=== PATIENT | female | born 1950 | race Hispanic/Latino ===

== ENCOUNTER 2017-09-26 10:06 | Observation (INO) | payer MEDICARE ==
[~2017-09-26] VITALS: Ht 149.9 cm; Wt 64.9 kg
[~2017-09-26 10:06] MED LIST: AEC81 PO; AMLO1TAB15 PO; ATENOLOL PO; CLON0.1T PO; CLOP75TA32 PO; DOCUSATE PO; EZET10 PO; FENT50PAT TD; IBUP-2353 PO; LINA1TAB5 PO; NILO200C PO; OXYC10TA48 PO; POTA10CA44 PO; SENNA PO; VANC1IVPB IV
[2017-09-26 11:33] LABS: APPEARANCE,URINE Clear (CLEAR); BILIRUBIN,URINE Negative (NEGATIVE); COLOR,URINE Yellow (YELLOW); EOSINOPHILS % (AUTO) 1.4 % (0.0-8.0); GLUCOSE, URINE (UA) Negative (NEGATIVE); HEMATOCRIT 34.4 % (36-48); KETONES,URINE Negative (NEGATIVE); LEUKOCYTE ESTERASE ,URINE Negative (NEGATIVE); LYMPHOCYTES % (AUTO) 23.4 % (21.0-51.0); MEAN CORPUSCULAR HEMOGLOBIN 30.4 pg (27.0-33.0); MEAN CORPUSCULAR HGB CONC 33.7 g/dL (32.0-36.0); MEAN CORPUSCULAR VOLUME 90.3 fL (79-99); MONOCYTES % (AUTO) 4.7 % (3.0-13.0); NEUTROPHILS % (AUTO) 69.5 % (40.0-77.0); NITRATE,URINE Negative (NEGATIVE); OCCULT BLOOD,URINE Negative (NEGATIVE); PH,URINE 7.5 (5.0-8.0); PLATELET COUNT (AUTO) 291 K/uL (130-400); PROTEIN,URINE Negative (NEGATIVE); RED BLOOD CELL COUNT(AUTO) 3.81 MIL/uL (4.00-5.50); RED CELL DISTRIBUTION WIDTH 14.1 % (11.0-15.5); UROBILINOGEN,URINE 0.2 mg/dL (0.2-1.0); WHITE BLOOD COUNT (AUTO) 7.7 K/uL (4.8-10.8)
[2017-09-26 11:42] LABS: CREATININE 0.8 mg/dL (0.5-1.5); POTASSIUM 3.5 mmol/L (3.5-5.1)
[2017-09-26] MEDS ORDERED: HYDRALAZINE HCL 25 MG TABLET ONE (11:43)
[2017-09-26 11:47] LABS: ALBUMIN 3.6 g/dL (3.5-5.0); BILIRUBIN,TOTAL 0.3 mg/dL (0.2-1.0); TOTAL PROTEIN, SERUM 7.4 g/dL (6.0-8.3)
[2017-09-26] MEDS ORDERED: ONDANSETRON HCL 4 MG/2 ML VIAL IV PRN (13:15)
[2017-09-26] MEDS ORDERED: HYDRALAZINE HCL 20 MG/ML VIAL IV PRN (13:15)
[2017-09-26] MEDS ORDERED: METOPROLOL TARTRATE 1 MG/ML 5ML VIAL IV ONE (13:15)
[2017-09-26] MEDS ORDERED: ACETAMINOPHEN-CODEINE 300/30MG TAB PO PRN (13:15)
[2017-09-26] MEDS ORDERED: GUAIFENESIN-DM 200/20 MG 10 ML PO PRN (13:15)
[2017-09-26] MEDS ORDERED: MORPHINE SULFATE 2 MG/ML 1ML SYG IV PRN (13:15)
[2017-09-26] MEDS ORDERED: ACETAMINOPHEN 325 MG TAB PO PRN ×2 (13:15)
[2017-09-26] MEDS ORDERED: LACTULOSE 20 GM/30 ML UDCUP PO PRN (13:15)
[2017-09-26] MEDS ORDERED: MAG HYDROX/AL HYDROX/SIMETH ES 30 ML SUSP UDCUP PO PRN (13:15)
[2017-09-26] MEDS ORDERED: HYDRALAZINE HCL 20 MG/ML VIAL ONE (14:40)
[2017-09-26] MEDS ORDERED: MORPHINE SULFATE 8 MG/ML VIAL ONE (16:02)
[2017-09-26] MEDS ORDERED: TRAZ-144 PO (17:36)
[2017-09-26] MEDS ORDERED: CILO50TA PO (17:36)
[2017-09-26] MEDS ORDERED: METO25TA6 PO (17:36)
[2017-09-26] MEDS ORDERED: NEOM7.5D3 OP (17:36)
[2017-09-26] MEDS ORDERED: DASA100T PO (17:36)
[2017-09-26] MEDS ORDERED: HYDR-3420 PO (17:36)
[2017-09-26] MEDS ORDERED: ROSU10TA35 PO (17:36)
[2017-09-26] MEDS ORDERED: LINA1TAB5 PO (17:36)
[2017-09-26] MEDS ORDERED: CEPH500C2 PO (17:36)
[2017-09-26] MEDS ORDERED: ASPI-555 PO (17:36)
[2017-09-26] MEDS ORDERED: LOSA100T29 PO (17:36)
[2017-09-26] MEDS ORDERED: ISOS30TA6 PO (17:36)
[2017-09-26 17:48] VITALS: BP 147/66
[2017-09-26 19:00] VITALS: BP 159/68
[2017-09-26] MEDS: FAMOTIDINE/PF 20 MG/2 ML VIAL IV SCH ×2 (19:31→21:29)
[2017-09-26 23:00] VITALS: BP 119/54
[2017-09-27 03:00] VITALS: BP 145/59
[2017-09-27 08:00] VITALS: BP 168/79
[2017-09-27] MEDS: FAMOTIDINE/PF 20 MG/2 ML VIAL IV SCH ×2 (09:00→11:31)
[2017-09-27] MEDS ORDERED: ENOXAPARIN SODIUM 40 MG/0.4 ML SYRINGE SQ SCH (09:00)
[2017-09-27 11:00] VITALS: BP_SYST 138; BP_SYST 162; BP_DIAS 66; BP_DIAS 73
[2017-09-27] MEDS ORDERED: METOPROLOL TARTRATE 25 MG TAB ONE (11:21)
[2017-09-27] MEDS ORDERED: LOSARTAN 100 MG TABLET ONE (11:22)
[2017-09-27] MEDS ORDERED: ISOSORBIDE MONO 30MG TAB SR PO ONE (11:22)
[2017-09-27] MEDS ORDERED: HYDRALAZINE HCL 25 MG TABLET ONE (11:22)
[2017-09-27] MEDS ORDERED: CEPHALEXIN 500 MG CAPSULE PO SCH (14:00)
[2017-09-27 14:47] VITALS: BP 146/57
[2017-09-27] MEDS ORDERED: CILOSTAZOL 100 MG TAB PO SCH (16:30)
[2017-09-27] MEDS ORDERED: [UNRECOGNIZED DRUG - OTHER] PO SCH (21:00)
[2017-09-27] MEDS ORDERED: TRAZODONE HCL 50 MG TAB PO SCH (21:00)
[2017-09-27] MEDS ORDERED: METFORMIN HCL PO SCH (21:00)
[2017-09-27] MEDS ORDERED: LINAGLIPTIN 5 MG TABLET PO SCH (21:00)
[2017-09-27] MEDS ORDERED: LINAGLIPTIN PO SCH (21:00)
[2017-09-27] MEDS ORDERED: HYDRALAZINE HCL 25 MG TABLET PO SCH (21:00)
[2017-09-27] MEDS ORDERED: METFORMIN HCL 500 MG TABLET PO SCH (21:00)
[2017-09-28] MEDS ORDERED: ISOSORBIDE MONO 30MG TAB SR PO SCH (09:00)
[2017-09-28] MEDS ORDERED: ATORVASTATIN CALCIUM 20 MG TABLET PO SCH (09:00)
[2017-09-28] MEDS ORDERED: SPRYCEL 100 MG PO SCH (09:00)
[2017-09-28] MEDS ORDERED: LOSARTAN 100 MG TABLET PO SCH (09:00)
[2017-09-28] MEDS ORDERED: HYDROCORTISONE OP PRN (09:00)
[2017-09-28] MEDS ORDERED: POLYMYXIN B OP PRN (09:00)
[2017-09-28] MEDS ORDERED: ASPIRIN 81 MG EC TAB PO SCH (09:00)
[2017-09-28] MEDS ORDERED: METOPROLOL TARTRATE 25 MG TAB PO SCH (09:00)
[2017-09-28] MEDS ORDERED: NEOMYCIN OP PRN (09:00)
[2018-02-04] MEDS ORDERED: TRAZ-144 PO (02:51)
== END 2017-09-27 17:20 | disposition home or self-care (01) ==
LOC: EDH 10:06 → EDHIP 13:12 → 3BH 16:41
PROVIDERS: ADMIT Family Medicine; ATTEND Family Medicine
DX: I10 Essential (primary) hypertension (principal); E11.9 Type 2 diabetes mellitus without complications; Z85.6 Personal history of leukemia; Z98.49 Cataract extraction status, unspecified eye
CPT/HCPCS: 36415; 70450; 80053; 81003; 82948 ×3; 85025; 96374; 96376; 99285; G0378 ×28; J0360; J1650; J2270; J3490 ×3

== ENCOUNTER 2017-10-10 14:04 | Observation (INO) | payer MEDICARE ==
[~2017-10-10] VITALS: Ht 149.9 cm; Wt 67.9 kg
[~2017-10-10 14:04] MED LIST changes: -AMLO1TAB15 PO; +ASPI-555 PO; -ATENOLOL PO; +CILO50TA PO; -CLON0.1T PO; -CLOP75TA32 PO; +DASA100T PO; -DOCUSATE PO; -EZET10 PO; +HYDR-3420 PO; -IBUP-2353 PO; +ISOS30TA6 PO; +LOSA100T29 PO; +METO25TA6 PO; +NEOM7.5D3 OP; -NILO200C PO; -OXYC10TA48 PO; +ROSU10TA35 PO; -SENNA PO; +TRAZ-144 PO; -VANC1IVPB IV
[2017-10-10 14:34] LABS: BASOPHILS % (AUTO) 0.8 % (0.0-5.0); EOSINOPHILS % (AUTO) 0.9 % (0.0-8.0); LYMPHOCYTES % (AUTO) 17.8 % (21.0-51.0); MEAN CORPUSCULAR HEMOGLOBIN 31.3 pg (27.0-33.0); MEAN CORPUSCULAR HGB CONC 34.1 g/dL (32.0-36.0); MEAN CORPUSCULAR VOLUME 91.7 fL (79-99); MONOCYTES % (AUTO) 5.5 % (3.0-13.0); PLATELET COUNT (AUTO) 212 K/uL (130-400); RED BLOOD CELL COUNT(AUTO) 3.27 MIL/uL (4.00-5.50); RED CELL DISTRIBUTION WIDTH 14.7 % (11.0-15.5); WHITE BLOOD COUNT (AUTO) 7.2 K/uL (4.8-10.8)
[2017-10-10 14:50] LABS: POTASSIUM 3.6 mmol/L (3.5-5.1)
[2017-10-10] MEDS ORDERED: METOCLOPRAMIDE 10 MG/2 ML VIAL ONE (14:52)
[2017-10-10] MEDS ORDERED: SODIUM CHLORIDE 0.9% 1000ML 1,000 ML IV ONE (14:52)
[2017-10-10] MEDS ORDERED: ACETAMINOPHEN 325 MG TAB ONE (14:52)
[2017-10-10 14:55] LABS: ALBUMIN 3.6 g/dL (3.5-5.0); BILIRUBIN,TOTAL 0.4 mg/dL (0.2-1.0); TOTAL PROTEIN, SERUM 6.9 g/dL (6.0-8.3)
[2017-10-10 15:45] LABS: APPEARANCE,URINE Clear (CLEAR); BILIRUBIN,URINE Negative (NEGATIVE); COLOR,URINE Yellow (YELLOW); GLUCOSE, URINE (UA) Negative (NEGATIVE); KETONES,URINE Negative (NEGATIVE); LEUKOCYTE ESTERASE ,URINE Trace (NEGATIVE); NITRATE,URINE Negative (NEGATIVE); OCCULT BLOOD,URINE Negative (NEGATIVE); PH,URINE 5.5 (5.0-8.0); PROTEIN,URINE Negative (NEGATIVE); UROBILINOGEN,URINE 0.2 mg/dL (0.2-1.0)
[2017-10-10 15:52] LABS: BACTERIA,URINE Rare /HPF (None Seen); RBC,URINE None Seen /HPF (0-1); TRANSITIONAL EPI CELLS,URINE Few /LPF (None Seen)
[2017-10-10] MEDS ORDERED: LACTULOSE 20 GM/30 ML UDCUP PO PRN (16:15)
[2017-10-10] MEDS ORDERED: MAG HYDROX/AL HYDROX/SIMETH ES 30 ML SUSP UDCUP PO PRN (16:15)
[2017-10-10] MEDS ORDERED: ONDANSETRON HCL 4 MG/2 ML VIAL IV PRN (16:15)
[2017-10-10] MEDS ORDERED: ACETAMINOPHEN 325 MG TAB PO PRN ×2 (16:15)
[2017-10-10] MEDS ORDERED: GUAIFENESIN-DM 200/20 MG 10 ML PO PRN (16:15)
[2017-10-10] MEDS ORDERED: NITROGLYCERIN 0.4 MG SL TAB SL PRN (16:15)
[2017-10-10] MEDS ORDERED: ASPIRIN 81MG TAB.CHEW ONE (16:19)
[2017-10-10] MEDS ORDERED: NITROGLYCERIN 1GM/1 INCH PACKET TD ONE (16:20)
[2017-10-10] MEDS ORDERED: ENOXAPARIN SODIUM 40 MG/0.4 ML SYRINGE SQ ONE (16:38)
[2017-10-10] MEDS ORDERED: METOPROLOL TARTRATE 25 MG TAB PO SCH (21:00)
[2017-10-10] MEDS: FAMOTIDINE/PF 20 MG/2 ML VIAL IV SCH (21:00)
[2017-10-10] MEDS ORDERED: FAMOTIDINE/PF 20 MG/2 ML VIAL IV ONE (21:58)
[2017-10-10] MEDS ORDERED: METOPROLOL TARTRATE 25 MG TAB ONE (21:58)
[2017-10-10 22:30] LABS: CREATINE KINASE MB 1.3 ng/mL (0.5-3.6); TROPONIN I 0.09 ng/mL (0.00-0.06)
[2017-10-11 03:00] VITALS: BP 195/92
[2017-10-11] MEDS ORDERED: SERT50TA12 PO (03:58)
[2017-10-11] MEDS ORDERED: HYDR100T27 PO (03:58)
[2017-10-11] MEDS ORDERED: METO25TA6 PO (03:58)
[2017-10-11] MEDS ORDERED: CLOP75TA14 PO (03:58)
[2017-10-11 07:28] LABS: CREATINE KINASE MB 0.8 ng/mL (0.5-3.6); TROPONIN I 0.08 ng/mL (0.00-0.06)
[2017-10-11 07:35] VITALS: BP 183/78
[2017-10-11] MEDS: ASPIRIN 325 MG TABLET PO SCH (09:11)
[2017-10-11] MEDS: FAMOTIDINE/PF 20 MG/2 ML VIAL IV SCH ×2 (09:11→20:52)
[2017-10-11] MEDS: ENOXAPARIN SODIUM 40 MG/0.4 ML SYRINGE SQ SCH (09:12)
[2017-10-11 11:09] VITALS: BP 180/75
[2017-10-11] MEDS: HYDRALAZINE HCL 20 MG/ML VIAL IV PRN ×2 (14:11→19:02)
[2017-10-11 16:00] VITALS: BP 196/77
[2017-10-11 16:19] VITALS: BP 222/81
[2017-10-11 19:34] VITALS: BP 186/76
[2017-10-11] MEDS: AMLODIPINE BESYLATE 5 MG TAB PO SCH (19:35)
[2017-10-12 00:05] VITALS: BP 180/76
[2017-10-12] MEDS: HYDRALAZINE HCL 20 MG/ML VIAL IV PRN (01:11)
[2017-10-12 04:00] VITALS: BP 169/62
[2017-10-12 07:00] VITALS: BP 182/61
[2017-10-12] MEDS: HYDRALAZINE HCL 25 MG TABLET PO SCH ×2 (08:50→13:29)
[2017-10-12] MEDS: ASPIRIN 325 MG TABLET PO SCH (08:51)
[2017-10-12] MEDS: FAMOTIDINE/PF 20 MG/2 ML VIAL IV SCH (08:51)
[2017-10-12] MEDS: AMLODIPINE BESYLATE 5 MG TAB PO SCH (08:51)
[2017-10-12] MEDS: ENOXAPARIN SODIUM 40 MG/0.4 ML SYRINGE SQ SCH (08:52)
[2017-10-12] MEDS ORDERED: SPRYCEL 100 MG PO SCH (09:00)
[2017-10-12] MEDS ORDERED: CILOSTAZOL 100 MG TAB PO SCH (09:00)
[2017-10-12] MEDS ORDERED: ISOSORBIDE MONO 30MG TAB SR PO SCH (09:00)
[2017-10-12] MEDS ORDERED: METFORMIN HCL 500 MG TABLET PO SCH (09:00)
[2017-10-12] MEDS ORDERED: CLOPIDOGREL BISULFATE 75 MG TAB PO SCH (09:00)
[2017-10-12] MEDS ORDERED: SERTRALINE HCL 50 MG TABLET PO SCH (09:00)
[2017-10-12] MEDS ORDERED: LOSARTAN 100 MG TABLET PO SCH (09:00)
[2017-10-12] MEDS ORDERED: LINAGLIPTIN 5 MG TABLET PO SCH (09:00)
[2017-10-12] MEDS ORDERED: METOPROLOL TARTRATE 25 MG TAB PO SCH (09:00)
[2017-10-12 11:00] VITALS: BP 172/77
[2017-10-12 13:05] VITALS: BP 179/59
[2017-10-12 14:25] VITALS: BP 158/58
[2017-10-12] MEDS ORDERED: TRAZODONE HCL 50 MG TAB PO SCH (21:00)
[2018-02-04] MEDS ORDERED: TRAZ-144 PO (02:51)
== END 2017-10-12 15:25 | disposition home or self-care (01) ==
LOC: EDH 14:04 → EDHIP 16:12 → INTOOBSV 16:12 → OBSVTOIN 16:12 → 2AH 10-11 02:15
PROVIDERS: ADMIT Family Medicine; ATTEND Family Medicine
DX: R07.89 Other chest pain (principal); E11.51 Type 2 diabetes mellitus with diabetic peripheral angiopathy without gangrene; I10 Essential (primary) hypertension; E78.5 Hyperlipidemia, unspecified; Z85.6 Personal history of leukemia; Z89.432 Acquired absence of left foot; Z89.431 Acquired absence of right foot
CPT/HCPCS: 36415 ×2; 71045; 80053; 81001; 82550 ×2; 82553 ×2; 82948; 83690; 83874 ×2; 84484 ×3; 85025; 93005 ×2; 96372 ×2; 96374; 96375; 96376 ×2; 99285; G0378 ×47; J0360 ×4; J1650 ×3; J2765; J3490 ×4; J7030

== ENCOUNTER 2018-02-03 07:42 | Inpatient (IN) | payer MEDICARE ==
[~2018-02-03] VITALS: Ht 149.9 cm; Wt 58.2 kg
[~2018-02-03 07:42] MED LIST changes: -AEC81 PO; +CLOP75TA14 PO; -HYDR-3420 PO; +HYDR100T27 PO; -POTA10CA44 PO; +ROSU10TA27 PO; -ROSU10TA35 PO; +SERT50TA12 PO; -TRAZ-144 PO; +TRAZ-185 PO
[2018-02-03 08:24] LABS: BASOPHILS % (AUTO) 0.8 % (0.0-5.0); EOSINOPHILS % (AUTO) 2.1 % (0.0-8.0); HEMATOCRIT 30.6 % (36-48); LYMPHOCYTES % (AUTO) 18.1 % (21.0-51.0); MEAN CORPUSCULAR HEMOGLOBIN 31.7 pg (27.0-33.0); MEAN CORPUSCULAR HGB CONC 33.9 g/dL (32.0-36.0); MEAN CORPUSCULAR VOLUME 93.5 fL (79-99); MONOCYTES % (AUTO) 4.9 % (3.0-13.0); NEUTROPHILS % (AUTO) 74.1 % (40.0-77.0); PLATELET COUNT (AUTO) 252 K/uL (130-400); RED BLOOD CELL COUNT(AUTO) 3.27 MIL/uL (4.00-5.50); RED CELL DISTRIBUTION WIDTH 15.3 % (11.0-15.5); WHITE BLOOD COUNT (AUTO) 6.6 K/uL (4.8-10.8)
[2018-02-03 08:27] LABS: CREATININE 0.9 mg/dL (0.5-1.5); POTASSIUM 3.4 mmol/L (3.5-5.1)
[2018-02-03 08:43] LABS: ALBUMIN 3.6 g/dL (3.5-5.0); BILIRUBIN,TOTAL 0.4 mg/dL (0.2-1.0); CREATINE KINASE MB 2.1 ng/mL (0.5-3.6); TOTAL PROTEIN, SERUM 7.5 g/dL (6.0-8.3)
[2018-02-03 08:47] LABS: PARTIAL THROMBOPLASTIN TIME 27.5 SEC (26.3-35.5); PROTHROMBIN TIME 10.5 SEC (9.6-11.6)
[2018-02-03 09:22] LABS: APPEARANCE,URINE Clear (CLEAR); BILIRUBIN,URINE Negative (NEGATIVE); COLOR,URINE Yellow (YELLOW); GLUCOSE, URINE (UA) Negative (NEGATIVE); KETONES,URINE Negative (NEGATIVE); LEUKOCYTE ESTERASE ,URINE Negative (NEGATIVE); NITRATE,URINE Negative (NEGATIVE); OCCULT BLOOD,URINE Negative (NEGATIVE); PROTEIN,URINE POS 2+ (NEGATIVE); UROBILINOGEN,URINE 0.2 mg/dL (0.2-1.0)
[2018-02-03 09:28] LABS: BACTERIA,URINE Rare /HPF (None Seen); RBC,URINE 0-1 /HPF (0-1); SQUAMOUS EPITHELIAL CELL,UR Moderate /HPF (0-2)
[2018-02-03] MEDS ORDERED: IOPAMIDOL-370 100 ML VIAL IV ONE (10:52)
[2018-02-03] MEDS ORDERED: SODIUM CHLORIDE 0.9% 100 ML IV ONE (14:11)
[2018-02-03] MEDS ORDERED: CEFTRIAXONE SODIUM 1 GM ONE (14:11)
[2018-02-03] MEDS ORDERED: AZITHROMYCIN 500MG+NS 250ML 250 ML IV ONE (15:21)
[2018-02-03 18:45] VITALS: BP 188/68
[2018-02-03] MEDS ORDERED: LIDOCAINE HCL-MPF 1% 2ML VIAL IVP PRN (22:45)
[2018-02-03] MEDS ORDERED: POTASSIUM CHLORIDE 10% ELIXIR 20 MEQ/15 ML UDCUP PO PRN (22:45)
[2018-02-03] MEDS ORDERED: POTASSIUM CHLORIDE 20MEQ/100ML 100 ML IV PRN (22:45)
[2018-02-03] MEDS ORDERED: POTASSIUM CHLORIDE 10 MEQ/TAB.SA PO ONE ×2 (23:21→23:22)
[2018-02-04 00:27] VITALS: BP 193/77
[2018-02-04] MEDS ORDERED: HYDRALAZINE HCL 20 MG/ML VIAL IV PRN (00:30)
[2018-02-04] MEDS ORDERED: HYDRALAZINE HCL 20 MG/ML VIAL ONE (00:32)
[2018-02-04] MEDS ORDERED: POTASSIUM CHLORIDE 10 MEQ/TAB.SA PO ONE ×6 (02:12→06:35)
[2018-02-04] MEDS: CEFTRIAXONE SODIUM 1 GM IVP SCH ×2 (02:20→15:35)
[2018-02-04] MEDS ORDERED: TRAZ-185 PO (02:51)
[2018-02-04] MEDS ORDERED: [UNRECOGNIZED DRUG - OTHER] (02:51)
[2018-02-04] MEDS ORDERED: ACET-2743 PO (02:51)
[2018-02-04] MEDS ORDERED: BUPR1PAT10 TD (02:51)
[2018-02-04] MEDS ORDERED: PHENERGAN GEL TP (02:51)
[2018-02-04] MEDS ORDERED: ISOS30TA6 PO (02:51)
[2018-02-04 03:39] LABS: BASOPHILS % (AUTO) 0.6 % (0.0-5.0); EOSINOPHILS % (AUTO) 1.8 % (0.0-8.0); HEMATOCRIT 31.3 % (36-48); LYMPHOCYTES % (AUTO) 24.3 % (21.0-51.0); MEAN CORPUSCULAR HEMOGLOBIN 33.3 pg (27.0-33.0); MEAN CORPUSCULAR VOLUME 92.7 fL (79-99); MONOCYTES % (AUTO) 6.7 % (3.0-13.0); NEUTROPHILS % (AUTO) 66.6 % (40.0-77.0); PLATELET COUNT (AUTO) 279 K/uL (130-400); RED BLOOD CELL COUNT(AUTO) 3.37 MIL/uL (4.00-5.50); RED CELL DISTRIBUTION WIDTH 16.2 % (11.0-15.5); WHITE BLOOD COUNT (AUTO) 8.3 K/uL (4.8-10.8)
[2018-02-04 03:45] LABS: INR 1.02 (0.85-1.15); PARTIAL THROMBOPLASTIN TIME 27.4 SEC (26.3-35.5); PROTHROMBIN TIME 10.7 SEC (9.6-11.6)
[2018-02-04 03:49] VITALS: BP 168/69
[2018-02-04 03:49] LABS: ALBUMIN 3.5 g/dL (3.5-5.0); BILIRUBIN,TOTAL 0.3 mg/dL (0.2-1.0); CREATININE 0.8 mg/dL (0.5-1.5); POTASSIUM 3.4 mmol/L (3.5-5.1); TOTAL PROTEIN, SERUM 7.4 g/dL (6.0-8.3)
[2018-02-04 07:41] VITALS: BP 186/76
[2018-02-04] MEDS ORDERED: PHENERGAN 25 MG TP PRN (09:15)
[2018-02-04 11:38] VITALS: BP 180/73
[2018-02-04] MEDS: AZITHROMYCIN 500MG+NS 250ML 250 ML IV SCH (11:40)
[2018-02-04] MEDS: HYDRALAZINE HCL 25 MG TABLET PO SCH ×2 (11:50→21:12)
[2018-02-04 16:35] VITALS: BP 160/74
[2018-02-04 19:56] VITALS: BP 179/74
[2018-02-04] MEDS: TRAZODONE HCL 50 MG TAB PO SCH (21:00)
[2018-02-04] MEDS: CILOSTAZOL 100 MG TAB PO SCH (21:13)
[2018-02-04] MEDS: ISOSORBIDE MONO 30MG TAB SR PO SCH (21:13)
[2018-02-04] MEDS: METOPROLOL TARTRATE 25 MG TAB PO SCH (21:13)
[2018-02-05] VITALS: BP 171/71
[2018-02-05] MEDS: CEFTRIAXONE SODIUM 1 GM IVP SCH ×2 (02:23→14:32)
[2018-02-05] MEDS: ACETAMINOPHEN 325 MG TAB PO PRN (03:29)
[2018-02-05 04:16] VITALS: BP 186/76
[2018-02-05 04:16] LABS: BASOPHILS % (AUTO) 0.5 % (0.0-5.0); EOSINOPHILS % (AUTO) 2.2 % (0.0-8.0); HEMATOCRIT 30.5 % (36-48); LYMPHOCYTES % (AUTO) 26.2 % (21.0-51.0); MEAN CORPUSCULAR HEMOGLOBIN 31.6 pg (27.0-33.0); MEAN CORPUSCULAR HGB CONC 34.2 g/dL (32.0-36.0); MEAN CORPUSCULAR VOLUME 92.3 fL (79-99); MONOCYTES % (AUTO) 6.7 % (3.0-13.0); NEUTROPHILS % (AUTO) 64.4 % (40.0-77.0); PLATELET COUNT (AUTO) 274 K/uL (130-400); RED CELL DISTRIBUTION WIDTH 15.5 % (11.0-15.5); WHITE BLOOD COUNT (AUTO) 9.1 K/uL (4.8-10.8)
[2018-02-05 04:18] LABS: POTASSIUM 3.5 mmol/L (3.5-5.1)
[2018-02-05] MEDS ORDERED: CLONIDINE HCL 0.1 MG TABLET PO PRN (05:30)
[2018-02-05] MEDS ORDERED: CLONIDINE HCL 0.1 MG TABLET ONE (05:32)
[2018-02-05] MEDS ORDERED: POTASSIUM CHLORIDE 10 MEQ/TAB.SA PO ONE (05:33)
[2018-02-05 07:42] VITALS: BP 147/74
[2018-02-05] MEDS: DASATINIB 100 MG PO SCH (09:00)
[2018-02-05] MEDS ORDERED: CLOPIDOGREL BISULFATE 75 MG TAB PO SCH (09:00)
[2018-02-05] MEDS: ASPIRIN 81 MG EC TAB PO SCH (09:49)
[2018-02-05] MEDS: METOPROLOL TARTRATE 25 MG TAB PO SCH ×2 (09:49→20:32)
[2018-02-05] MEDS: NIFEDIPINE ER 30 MG TAB PO SCH (09:49)
[2018-02-05] MEDS: CILOSTAZOL 100 MG TAB PO SCH ×2 (09:49→20:32)
[2018-02-05] MEDS: HYDRALAZINE HCL 25 MG TABLET PO SCH ×3 (09:50→20:33)
[2018-02-05] MEDS: ISOSORBIDE MONO 30MG TAB SR PO SCH ×2 (09:50→20:32)
[2018-02-05] MEDS: LOSARTAN 100 MG TABLET PO SCH (09:50)
[2018-02-05 11:00] VITALS: BP 124/73
[2018-02-05] MEDS: AZITHROMYCIN 500MG+NS 250ML 250 ML IV SCH (11:33)
[2018-02-05] MEDS: POTASSIUM CHLORIDE 20 MEQ ERTAB PO PRN ×2 (11:59→16:23)
[2018-02-05] MEDS ORDERED: FUROSEMIDE 10 MG/ML 2ML VIAL IV SCH (13:00)
[2018-02-05 16:29] VITALS: BP 142/71
[2018-02-05 19:48] VITALS: BP 139/67
[2018-02-05] MEDS: TRAZODONE HCL 50 MG TAB PO SCH (20:36)
[2018-02-06 00:53] VITALS: BP 117/66
[2018-02-06] MEDS: CEFTRIAXONE SODIUM 1 GM IVP SCH ×2 (02:01→15:00)
[2018-02-06 04:00] VITALS: BP 136/60
[2018-02-06 05:06] LABS: BASOPHILS % (AUTO) 0.7 % (0.0-5.0); EOSINOPHILS % (AUTO) 2.4 % (0.0-8.0); HEMATOCRIT 30.3 % (36-48); LYMPHOCYTES % (AUTO) 29.2 % (21.0-51.0); MEAN CORPUSCULAR HEMOGLOBIN 32.1 pg (27.0-33.0); MEAN CORPUSCULAR HGB CONC 34.7 g/dL (32.0-36.0); MEAN CORPUSCULAR VOLUME 92.6 fL (79-99); MONOCYTES % (AUTO) 6.1 % (3.0-13.0); NEUTROPHILS % (AUTO) 61.6 % (40.0-77.0); PLATELET COUNT (AUTO) 286 K/uL (130-400); RED BLOOD CELL COUNT(AUTO) 3.27 MIL/uL (4.00-5.50); RED CELL DISTRIBUTION WIDTH 15.8 % (11.0-15.5); WHITE BLOOD COUNT (AUTO) 9.7 K/uL (4.8-10.8)
[2018-02-06 05:18] LABS: PARTIAL THROMBOPLASTIN TIME 26.7 SEC (26.3-35.5); PROTHROMBIN TIME 10.5 SEC (9.6-11.6)
[2018-02-06 05:23] LABS: ALBUMIN 3.3 g/dL (3.5-5.0); BILIRUBIN,TOTAL 0.2 mg/dL (0.2-1.0); CREATININE 1.1 mg/dL (0.5-1.5); MAGNESIUM 1.5 mg/dL (1.80-2.40); PHOSPHORUS 4.2 mg/dL (2.5-4.9); POTASSIUM 3.7 mmol/L (3.5-5.1); TOTAL PROTEIN, SERUM 6.9 g/dL (6.0-8.3)
[2018-02-06] MEDS: FUROSEMIDE 10 MG/ML 2ML VIAL IV SCH ×2 (06:08→18:22)
[2018-02-06] MEDS: POTASSIUM CHLORIDE 20 MEQ ERTAB PO PRN ×2 (06:14→09:01)
[2018-02-06 07:44] VITALS: BP 136/56
[2018-02-06] MEDS: CILOSTAZOL 100 MG TAB PO SCH ×2 (08:59→21:20)
[2018-02-06] MEDS: HYDRALAZINE HCL 25 MG TABLET PO SCH ×2 (08:59→15:00)
[2018-02-06] MEDS: NIFEDIPINE ER 30 MG TAB PO SCH (08:59)
[2018-02-06] MEDS: ASPIRIN 81 MG EC TAB PO SCH (08:59)
[2018-02-06] MEDS: DASATINIB 100 MG PO SCH (09:00)
[2018-02-06] MEDS: ISOSORBIDE MONO 30MG TAB SR PO SCH ×2 (09:00→21:20)
[2018-02-06] MEDS: LOSARTAN 100 MG TABLET PO SCH (09:00)
[2018-02-06] MEDS: METOPROLOL TARTRATE 25 MG TAB PO SCH ×2 (09:01→21:20)
[2018-02-06] MEDS: AZITHROMYCIN 500MG+NS 250ML 250 ML IV SCH (11:33)
[2018-02-06 11:35] VITALS: BP 152/71
[2018-02-06] MEDS ORDERED: LIDOCAINE HCL 1% 20 ML VIAL ONE (13:34)
[2018-02-06] MEDS ORDERED: MAGNESIUM 2GM PREMIX 50ML 50 ML IV SCH (14:15)
[2018-02-06] MEDS ORDERED: DEXTROSE IV SCH ×2 (16:00)
[2018-02-06] MEDS ORDERED: [UNRECOGNIZED DRUG - OTHER] IV SCH ×2 (16:00)
[2018-02-06 16:09] LABS: APPEARANCE BODY FLUID CLOUDY (CLEAR); SPECIMENTYPE,BODY FLUID PLEURAL
[2018-02-06 16:10] LABS: BODY FLUID WBC 650 /cu. mm.; COLOR,BODY FLUID ORANGE (LT YELLOW); TOTAL VOLUME,BODY FLUID 550 mL
[2018-02-06 16:11] LABS: BODY FLUID RBC 15167 /cu. mm.
[2018-02-06 16:42] VITALS: BP 125/55
[2018-02-06] MEDS: ACETAMINOPHEN 325 MG TAB PO PRN (18:32)
[2018-02-06 19:36] VITALS: BP 129/57
[2018-02-06 20:17] LABS: BF LYMPHOCYTE 89 %; BF MESOTHELIAL 1 %; BF OTHER CELLS 1
[2018-02-06] MEDS: TRAZODONE HCL 50 MG TAB PO SCH (21:20)
[2018-02-07] VITALS: BP 116/50
[2018-02-07 04:00] VITALS: BP 147/60
[2018-02-07] MEDS: CEFTRIAXONE SODIUM 1 GM IVP SCH (04:13)
[2018-02-07 04:55] LABS: BASOPHILS % (AUTO) 0.7 % (0.0-5.0); EOSINOPHILS % (AUTO) 2.3 % (0.0-8.0); HEMATOCRIT 30.5 % (36-48); LYMPHOCYTES % (AUTO) 27.3 % (21.0-51.0); MEAN CORPUSCULAR HEMOGLOBIN 31.6 pg (27.0-33.0); MEAN CORPUSCULAR HGB CONC 34.1 g/dL (32.0-36.0); MEAN CORPUSCULAR VOLUME 92.7 fL (79-99); MONOCYTES % (AUTO) 5.5 % (3.0-13.0); NEUTROPHILS % (AUTO) 64.2 % (40.0-77.0); PLATELET COUNT (AUTO) 240 K/uL (130-400); RED BLOOD CELL COUNT(AUTO) 3.29 MIL/uL (4.00-5.50); RED CELL DISTRIBUTION WIDTH 15.7 % (11.0-15.5); WHITE BLOOD COUNT (AUTO) 9.4 K/uL (4.8-10.8)
[2018-02-07 05:07] LABS: CREATININE 1.4 mg/dL (0.5-1.5); MAGNESIUM 2.1 mg/dL (1.80-2.40); POTASSIUM 3.6 mmol/L (3.5-5.1)
[2018-02-07] MEDS: POTASSIUM CHLORIDE 20 MEQ ERTAB PO PRN (06:39)
[2018-02-07] MEDS: FUROSEMIDE 10 MG/ML 2ML VIAL IV SCH (06:39)
[2018-02-07 08:23] VITALS: BP 139/61
[2018-02-07] MEDS ORDERED: CLOPIDOGREL BISULFATE 75 MG TAB PO SCH (09:00)
[2018-02-07] MEDS: METOPROLOL TARTRATE 25 MG TAB PO SCH (11:32)
[2018-02-07] MEDS: LOSARTAN 100 MG TABLET PO SCH (11:32)
[2018-02-07] MEDS: ASPIRIN 81 MG EC TAB PO SCH (11:33)
[2018-02-07] MEDS: CILOSTAZOL 100 MG TAB PO SCH (11:33)
[2018-02-07] MEDS: NIFEDIPINE ER 30 MG TAB PO SCH (11:33)
[2018-02-07] MEDS: ISOSORBIDE MONO 30MG TAB SR PO SCH (11:33)
[2018-02-07] MEDS: AZITHROMYCIN 500MG+NS 250ML 250 ML IV SCH (11:34)
[2018-02-07 12:00] VITALS: BP 143/75
[2018-02-11] MEDS ORDERED: BUPRENORPHINE TD SCH (09:00)
== END 2018-02-07 14:45 | disposition home or self-care (01) | DRG 193 ==
LOC: EDH 07:42 → EDHIP 11:50 → 2DH 18:31
PROVIDERS: ADMIT Internal Medicine Nephrology; ATTEND Internal Medicine Nephrology
PROC: 0W9930Z Drainage of Right Pleural Cavity with Drainage Device, Percutaneous Approach (ICD-10-PCS; principal; 2018-02-06)
DX: J18.9 Pneumonia, unspecified organism (principal); J96.91 Respiratory failure, unspecified with hypoxia; J90 Pleural effusion, not elsewhere classified; C95.90 Leukemia, unspecified not having achieved remission; I10 Essential (primary) hypertension; E78.5 Hyperlipidemia, unspecified; E11.51 Type 2 diabetes mellitus with diabetic peripheral angiopathy without gangrene; E11.649 Type 2 diabetes mellitus with hypoglycemia without coma; E83.42 Hypomagnesemia; E87.6 Hypokalemia; I25.10 Atherosclerotic heart disease of native coronary artery without angina pectoris; Z51.11 Encounter for antineoplastic chemotherapy; Z74.01 Bed confinement status; Z89.432 Acquired absence of left foot; Z89.431 Acquired absence of right foot; Z87.891 Personal history of nicotine dependence; Z87.01 Personal history of pneumonia (recurrent); Z83.3 Family history of diabetes mellitus; Z82.49 Family history of ischemic heart disease and other diseases of the circulatory system
CPT/HCPCS: 36415; 71045; 71046; 71250; 71275; 80048; 80053; 81001; 82550; 82553; 82945; 83605; 83615; 83690; 83735; 83880; 83986; 84100; 84157; 84484; 85025; 85378; 85610; 85730; 87071; 87116; 87205; 87206; 88108; 88305; 89051; 93005; 93306; A4218; C1729; J0360; J0456; J0696; J1940; J3475; J3490; J7131; Q9967

== ENCOUNTER 2018-03-03 16:22 | Emergency (ER) | payer MEDICARE ==
[~2018-03-03 16:22] MED LIST changes: +ACET-2743 PO; +BUPR1PAT10 TD; -FENT50PAT TD; -LINA1TAB5 PO; -NEOM7.5D3 OP; +PHENERGAN GEL TP; -ROSU10TA27 PO; -SERT50TA12 PO
[2018-03-03 16:43] LABS: BASOPHILS % (AUTO) 0.8 % (0.0-5.0); EOSINOPHILS % (AUTO) 1.9 % (0.0-8.0); HEMATOCRIT 32.4 % (36-48); LYMPHOCYTES % (AUTO) 32.3 % (21.0-51.0); MEAN CORPUSCULAR HGB CONC 34.7 g/dL (32.0-36.0); MEAN CORPUSCULAR VOLUME 92.1 fL (79-99); PLATELET COUNT (AUTO) 266 K/uL (130-400); RED BLOOD CELL COUNT(AUTO) 3.52 MIL/uL (4.00-5.50); RED CELL DISTRIBUTION WIDTH 15.5 % (11.0-15.5); WHITE BLOOD COUNT (AUTO) 8.7 K/uL (4.8-10.8)
[2018-03-03 16:52] LABS: POTASSIUM 3.2 mmol/L (3.5-5.1)
[2018-03-03] MEDS ORDERED: METOPROLOL TARTRATE 1 MG/ML 5ML VIAL IV ONE (18:23)
[2018-03-03 18:44] LABS: CREATINE KINASE MB 2.2 ng/mL (0.5-3.6); TROPONIN I 0.09 ng/mL (0.00-0.06)
[2018-03-03] MEDS ORDERED: HYDRALAZINE HCL 25 MG TABLET ONE (19:18)
[2018-03-03] MEDS ORDERED: ASPIRIN 325 MG TABLET ONE (19:26)
[2018-03-03] MEDS ORDERED: NITROGLYCERIN 1GM/1 INCH PACKET TD ONE (19:26)
[2018-03-03 19:51] LABS: ABG BASE EXCESS -0.4 mmol/L (-2.0-3.0); ABG HCO3 23.5 mmol/L (21.0-28.0); ABG OXYGEN SATURATION 95.5 % (95.0-99.0); ABG PCO2 36 mmHg (32-45)
== END 2018-03-03 23:55 | disposition home or self-care (01) ==
LOC: EDH 16:22
DX: I10 Essential (primary) hypertension (principal); E11.9 Type 2 diabetes mellitus without complications; C95.90 Leukemia, unspecified not having achieved remission; Z90.49 Acquired absence of other specified parts of digestive tract; Z90.710 Acquired absence of both cervix and uterus; Z98.890 Other specified postprocedural states; Z79.82 Long term (current) use of aspirin; Z79.899 Other long term (current) drug therapy; Z88.8 Allergy status to other drugs, medicaments and biological substances
CPT/HCPCS: 36415; 36600; 70450; 80048; 82330; 82435; 82550; 82553; 82803; 82947; 83605; 83874; 84132; 84295; 84484 ×2; 85018; 85025; 93005 ×2; 96374; 99285; J3490

== ENCOUNTER → 2020-11-26 | Outpatient (CLI) | payer OTHER, MEDICARE ==
[~2020-11-26] MED LIST changes: +AMLO-257 PO; -ASPI-555 PO; +ASPI-556 PO; +AZIT500T4 PO; +BENZ-51 PO; +BOSU500T PO; -BUPR1PAT10 TD; -DASA100T PO; -ISOS30TA6 PO; +ISOS60TA77 PO; -LOSA100T29 PO; +LOSA1TAB54 PO; -METO25TA6 PO; +METO50TA18 PO; +TERA2CAP4 PO
== END | disposition home or self-care (01) ==
LOC: SHCH 13:56
PROVIDERS: ATTEND Internal Medicine Cardiovascular Disease
DX: I73.9 Peripheral vascular disease, unspecified (principal)
CPT/HCPCS: 93930

== ENCOUNTER → 2021-04-14 | Outpatient (CLI) | payer OTHER, MEDICARE ==
[~2021-04-14] MED LIST changes: -BENZ-51 PO; +BENZ-70 PO; +IOHEXOL 350 MG/ML 100ML INFUS..BTL IV ONE
== END | disposition home or self-care (01) ==
LOC: RAH 09:57
PROVIDERS: ATTEND Internal Medicine Cardiovascular Disease
DX: M79.601 Pain in right arm (principal); I70.8 Atherosclerosis of other arteries; I63.9 Cerebral infarction, unspecified
CPT/HCPCS: 70498; 73206; Q9967

== ENCOUNTER → 2021-04-21 | Outpatient (CLI) | payer OTHER, MEDICARE ==
[~2021-04-21] MED LIST changes: -IOHEXOL 350 MG/ML 100ML INFUS..BTL IV ONE; +REGADENOSON 0.4 MG/5 ML PF SYG IVP SCH
== END | disposition home or self-care (01) ==
LOC: SHCH 09:57
PROVIDERS: ATTEND Internal Medicine Cardiovascular Disease
DX: I10 Essential (primary) hypertension (principal); R06.09 Other forms of dyspnea; R53.1 Weakness; J39.2 Other diseases of pharynx
CPT/HCPCS: 78452; 93017; 96374; A9500 ×2; J2785

== ENCOUNTER 2022-01-09 07:47 | Observation (INO) | payer OTHER, MEDICARE ==
[~2022-01-09] VITALS: Ht 149.9 cm; Wt 80.2 kg
[~2022-01-09 07:47] MED LIST changes: -REGADENOSON 0.4 MG/5 ML PF SYG IVP SCH
[2022-01-09] MEDS ORDERED: METOPROLOL TARTRATE 1 MG/ML 5ML VIAL IV ONE ×2 (08:00→09:30)
[2022-01-09 08:12] LABS: BASOPHILS % (AUTO) 0.5 % (0.0-5.0); EOSINOPHILS % (AUTO) 0.9 % (0.0-8.0); HEMATOCRIT 37.5 % (36-48); LYMPHOCYTES % (AUTO) 16.8 % (21.0-51.0); MEAN CORPUSCULAR HEMOGLOBIN 30.3 pg (27.0-33.0); MEAN CORPUSCULAR HGB CONC 33.9 g/dL (32.0-36.0); MEAN CORPUSCULAR VOLUME 89.5 fL (79-99); MONOCYTES % (AUTO) 3.1 % (3.0-13.0); NEUTROPHILS % (AUTO) 77.8 % (40.0-77.0); PLATELET COUNT (AUTO) 215 K/uL (130-400); RED BLOOD CELL COUNT(AUTO) 4.19 MIL/uL (4.00-5.50); RED CELL DISTRIBUTION WIDTH 14.6 % (11.0-15.5)
[2022-01-09 08:26] LABS: INR 0.96 (0.85-1.15); PROTHROMBIN TIME 10.5 SEC (9.6-11.6)
[2022-01-09 08:28] LABS: BILIRUBIN,TOTAL 0.2 mg/dL (0.2-1.0); CREATININE 1.1 mg/dL (0.5-1.5); POTASSIUM 3.4 mmol/L (3.5-5.1); TOTAL PROTEIN, SERUM 7.8 g/dL (6.0-8.3)
[2022-01-09] MEDS ORDERED: DILTIAZEM 25MG INJ IVP ONE ×2 (08:30→11:00)
[2022-01-09] MEDS ORDERED: FESO4TAB PO ×2 (09:22→14:42)
[2022-01-09] MEDS ORDERED: ISOS30TA92 PO (09:22)
[2022-01-09] MEDS ORDERED: LEVO5TAB13 PO (09:22)
[2022-01-09] MEDS ORDERED: METO100T14 PO (09:22)
[2022-01-09] MEDS ORDERED: DILTIAZEM 125 MG/25 ML INJ 125 MG in 0.9%NACL 100ML 100 ML IV SCH (10:30)
[2022-01-09] MEDS ORDERED: ACETAMINOPHEN 325 MG TAB PO PRN (12:00)
[2022-01-09] MEDS ORDERED: LACTULOSE 20 GM/30 ML UDCUP PO PRN (12:00)
[2022-01-09] MEDS ORDERED: HYDRALAZINE 20MG/ML VIAL IV PRN (12:00)
[2022-01-09] MEDS ORDERED: ONDANSETRON 4MG INJ IVP PRN (12:00)
[2022-01-09] MEDS ORDERED: LABETALOL 20MG SYG IV PRN (12:00)
[2022-01-09 12:56] LABS: APPEARANCE,URINE Clear (CLEAR); BILIRUBIN,URINE Negative (NEGATIVE); COLOR,URINE Yellow (YELLOW); GLUCOSE, URINE (UA) Negative (NEGATIVE); KETONES,URINE Negative (NEGATIVE); LEUKOCYTE ESTERASE ,URINE Small (NEGATIVE); NITRATE,URINE Negative (NEGATIVE); OCCULT BLOOD,URINE Negative (NEGATIVE); PH,URINE 6.5 (5.0-8.0); PROTEIN,URINE 300 mg/dL (NEGATIVE); UROBILINOGEN,URINE 0.2 mg/dL (0.2-1.0)
[2022-01-09 13:24] LABS: BACTERIA,URINE Rare /HPF (None Seen); RBC,URINE 0-1 /HPF (0-1); SQUAMOUS EPITHELIAL CELL,UR Rare /HPF (0-2)
[2022-01-09] MEDS: CEFTRIAXONE 1G VIAL IVP SCH (13:26)
[2022-01-09 14:20] VITALS: BP 136/60
[2022-01-09] MEDS ORDERED: PONA45TA2 PO (14:45)
[2022-01-09] MEDS ORDERED: POTASSIUM CHLORIDE 10% ELIXIR 20 MEQ/15 ML UDCUP PO PRN (15:30)
[2022-01-09] MEDS ORDERED: MAGNESIUM 2GM PREMIX 50ML 50 ML IV PRN (15:30)
[2022-01-09] MEDS ORDERED: POTASSIUM CHLORIDE 20MEQ/100ML 100 ML IV PRN (15:30)
[2022-01-09 16:00] VITALS: BP 143/70
[2022-01-09] MEDS: INSULIN HUMULIN R 100 UNIT/ML 3ML SQ SCH ×2 (16:30→20:19)
[2022-01-09] MEDS ORDERED: NITROGLYCERIN 0.4 MG SL TAB SL ONE (17:03)
[2022-01-09] MEDS ORDERED: NITROGLYCERIN 0.4 MG SL TAB SL PRN (18:00)
[2022-01-09] MEDS ORDERED: IOHEXOL 350 MG/ML 100ML INFUS..BTL IV ONE (18:48)
[2022-01-09 20:04] VITALS: BP 158/116
[2022-01-09] MEDS: CETIRIZINE HCL 5 MG TABLET PO SCH (20:12)
[2022-01-09] MEDS: METOPROLOL TARTRATE 50 MG TAB PO SCH (20:12)
[2022-01-09] MEDS: ENOXAPARIN SODIUM 80 MG/0.8 ML SQ SCH (20:12)
[2022-01-09 21:03] VITALS: BP 156/76
[2022-01-09] MEDS ORDERED: FURO40TA5 PO (21:27)
[2022-01-09 23:22] VITALS: BP 141/61
[2022-01-09 23:46] LABS: CREATINE KINASE, TOTAL 55 U/L (21-232); MYOGLOBIN 56 ng/mL (10-92)
[2022-01-10 03:54] VITALS: BP 144/91
[2022-01-10 04:02] LABS: BASOPHILS % (AUTO) 0.5 % (0.0-5.0); HEMATOCRIT 35.2 % (36-48); LYMPHOCYTES % (AUTO) 15.7 % (21.0-51.0); MEAN CORPUSCULAR HEMOGLOBIN 29.8 pg (27.0-33.0); MEAN CORPUSCULAR HGB CONC 33.2 g/dL (32.0-36.0); MEAN CORPUSCULAR VOLUME 89.6 fL (79-99); MONOCYTES % (AUTO) 3.3 % (3.0-13.0); NEUTROPHILS % (AUTO) 78.9 % (40.0-77.0); PLATELET COUNT (AUTO) 208 K/uL (130-400); RED BLOOD CELL COUNT(AUTO) 3.93 MIL/uL (4.00-5.50); RED CELL DISTRIBUTION WIDTH 14.4 % (11.0-15.5); WHITE BLOOD COUNT (AUTO) 19.1 K/uL (4.8-10.8)
[2022-01-10 04:27] LABS: CREATININE 1.2 mg/dL (0.5-1.5); MAGNESIUM 1.9 mg/dL (1.80-2.40); PHOSPHORUS 4.2 mg/dL (2.5-4.9); POTASSIUM 3.8 mmol/L (3.5-5.1); THYROID STIMULATING HORMONE 9.71 uIU/mL (0.36-3.74)
[2022-01-10] MEDS: KCL 20 MEQ ERTAB PO PRN (05:28)
[2022-01-10] MEDS: INSULIN HUMULIN R 100 UNIT/ML 3ML SQ SCH ×4 (07:30→19:53)
[2022-01-10 07:37] VITALS: BP 130/65
[2022-01-10] MEDS: METOPROLOL TARTRATE 50 MG TAB PO SCH ×2 (08:30→20:24)
[2022-01-10] MEDS: PANTOPRAZOLE 40 MG TAB DR PO SCH (08:30)
[2022-01-10] MEDS: ENOXAPARIN SODIUM 80 MG/0.8 ML SQ SCH ×2 (08:31→20:25)
[2022-01-10] MEDS: ISOSORBIDE MONO 30MG SR TAB PO SCH (08:31)
[2022-01-10] MEDS ORDERED: ENOXAPARIN SODIUM 30 MG/0.3 ML SQ SCH (09:00)
[2022-01-10 12:05] VITALS: BP 142/62
[2022-01-10] MEDS: CEFTRIAXONE 1G VIAL IVP SCH (12:10)
[2022-01-10 16:30] VITALS: BP 155/56
[2022-01-10] MEDS ORDERED: DiphenhydrAMINE HCL 25 MG/10 ML ELIXIR UDCUP PO PRN (17:00)
[2022-01-10] MEDS: **HM** TOVIAZ 4MG PO SCH (20:00)
[2022-01-10 20:12] VITALS: BP 159/76
[2022-01-10] MEDS: CETIRIZINE HCL 5 MG TABLET PO SCH (20:24)
[2022-01-10 23:40] VITALS: BP 157/77
[2022-01-11 03:54] VITALS: BP 145/46
[2022-01-11 03:56] LABS: BASOPHILS % (AUTO) 0.4 % (0.0-5.0); HEMATOCRIT 29.9 % (36-48); MEAN CORPUSCULAR HGB CONC 32.4 g/dL (32.0-36.0); MEAN CORPUSCULAR VOLUME 92.6 fL (79-99); MONOCYTES % (AUTO) 3.5 % (3.0-13.0); NEUTROPHILS % (AUTO) 80.5 % (40.0-77.0); PLATELET COUNT (AUTO) 188 K/uL (130-400); RED BLOOD CELL COUNT(AUTO) 3.23 MIL/uL (4.00-5.50); RED CELL DISTRIBUTION WIDTH 14.8 % (11.0-15.5); WHITE BLOOD COUNT (AUTO) 15.3 K/uL (4.8-10.8)
[2022-01-11 04:33] LABS: ALBUMIN 2.3 g/dL (3.5-5.0); BILIRUBIN,TOTAL 0.1 mg/dL (0.2-1.0); CREATININE 1.4 mg/dL (0.5-1.5); POTASSIUM 3.8 mmol/L (3.5-5.1); TOTAL PROTEIN, SERUM 5.9 g/dL (6.0-8.3)
[2022-01-11] MEDS: INSULIN HUMULIN R 100 UNIT/ML 3ML SQ SCH ×4 (06:01→20:54)
[2022-01-11] MEDS: KCL 20 MEQ ERTAB PO PRN (06:02)
[2022-01-11 07:41] VITALS: BP 184/71
[2022-01-11] MEDS: PANTOPRAZOLE 40 MG TAB DR PO SCH (08:44)
[2022-01-11] MEDS: METOPROLOL TARTRATE 50 MG TAB PO SCH ×2 (08:44→20:54)
[2022-01-11] MEDS: ISOSORBIDE MONO 30MG SR TAB PO SCH (08:44)
[2022-01-11] MEDS: ENOXAPARIN SODIUM 80 MG/0.8 ML SQ SCH (08:45)
[2022-01-11] MEDS: **HM** TOVIAZ 4MG PO SCH (09:00)
[2022-01-11 10:05] VITALS: BP 189/79
[2022-01-11 11:40] VITALS: BP 183/78
[2022-01-11] MEDS: HYDRALAZINE 25MG TABLET PO SCH ×3 (11:49→20:53)
[2022-01-11] MEDS: CEFTRIAXONE 1G VIAL IVP SCH (12:04)
[2022-01-11] MEDS ORDERED: APIX5TAB PO (14:48)
[2022-01-11] MEDS ORDERED: LEVO500T90 PO (14:59)
[2022-01-11 16:08] VITALS: BP 193/72
[2022-01-11] MEDS ORDERED: CLONIDINE HCL 0.1 MG TABLET PO ONE (16:30)
[2022-01-11 19:59] VITALS: BP 190/73
[2022-01-11] MEDS: CETIRIZINE HCL 5 MG TABLET PO SCH (20:54)
[2022-01-11] MEDS: APIXABAN 5 MG TABLET PO SCH (20:54)
[2022-01-12 00:08] VITALS: BP 140/66
[2022-01-12 04:37] VITALS: BP 144/52
[2022-01-12 06:57] VITALS: BP 143/64
[2022-01-12] MEDS: INSULIN HUMULIN R 100 UNIT/ML 3ML SQ SCH (06:59)
[2022-01-12] MEDS: ISOSORBIDE MONO 30MG SR TAB PO SCH (07:53)
[2022-01-12] MEDS: APIXABAN 5 MG TABLET PO SCH (07:53)
[2022-01-12] MEDS: PANTOPRAZOLE 40 MG TAB DR PO SCH (07:53)
[2022-01-12] MEDS: METOPROLOL TARTRATE 50 MG TAB PO SCH (07:53)
[2022-01-12] MEDS: **HM** TOVIAZ 4MG PO SCH (07:54)
[2022-01-12] MEDS ORDERED: HYDRALAZINE 25MG TABLET PO SCH (09:00)
[2022-01-12] MEDS ORDERED: HYDR-4154 PO (10:51)
== END 2022-01-12 10:00 | disposition home or self-care (01) ==
LOC: EDH 07:47 → EDHIP 12:30 → 2DH 14:15
PROVIDERS: ADMIT Internal Medicine Critical Care Medicine; ATTEND Internal Medicine Critical Care Medicine
DX: I48.20 Chronic atrial fibrillation, unspecified (principal); I20.9 Angina pectoris, unspecified; I21.4 Non-ST elevation (NSTEMI) myocardial infarction; N39.0 Urinary tract infection, site not specified; R77.8 Other specified abnormalities of plasma proteins; I10 Essential (primary) hypertension; E11.51 Type 2 diabetes mellitus with diabetic peripheral angiopathy without gangrene; C95.90 Leukemia, unspecified not having achieved remission; I73.9 Peripheral vascular disease, unspecified; E78.5 Hyperlipidemia, unspecified; Z95.820 Peripheral vascular angioplasty status with implants and grafts; Z87.891 Personal history of nicotine dependence; Z79.01 Long term (current) use of anticoagulants; Z79.02 Long term (current) use of antithrombotics/antiplatelets; Z79.899 Other long term (current) drug therapy; Z88.1 Allergy status to other antibiotic agents
CPT/HCPCS: 36415 ×3; 71045; 71275; 80048; 80053 ×2; 81001; 82550 ×3; 82948 ×11; 83735; 83874 ×3; 83880; 84100; 84443; 84484 ×4; 85025 ×3; 85378; 85610; 87040 ×2; 93005 ×3; 93306; 93970; 96365; 96366; 96367; 96372 ×3; 96375 ×2; 96376 ×3; 99291; G0378 ×69; J0696 ×3; J1650 ×4; J3475; J3490 ×5; Q9967

== ENCOUNTER → 2023-12-15 | Outpatient (CLI) | payer OTHER, MEDICARE ==
[~2023-12-15] MED LIST changes: -ACET-2743 PO; -AMLO-257 PO; +APIX5TAB PO; -ASPI-556 PO; -AZIT500T4 PO; -BENZ-70 PO; -BOSU500T PO; -CILO50TA PO; +CLOP-31 PO; -CLOP75TA14 PO; +FESO4TAB PO; +FURO40TA5 PO; +HYDR50TA37 PO; +ISOS30TA92 PO; -ISOS60TA77 PO; +LEVO-70 PO; +LEVO5TAB13 PO; -LOSA1TAB54 PO; +METO100T14 PO; -METO50TA18 PO; -PHENERGAN GEL TP; -TRAZ-185 PO
== END | disposition home or self-care (01) ==
LOC: SHCH 09:51
PROVIDERS: ATTEND Internal Medicine Cardiovascular Disease
DX: I08.0 Rheumatic disorders of both mitral and aortic valves (principal); E11.9 Type 2 diabetes mellitus without complications; E78.5 Hyperlipidemia, unspecified; I10 Essential (primary) hypertension; R09.89 Other specified symptoms and signs involving the circulatory and respiratory systems
CPT/HCPCS: 93306; 93880

== ENCOUNTER → 2024-04-17 | Outpatient (CLI) | payer OTHER, MEDICARE ==
[~2024-04-17] MED LIST changes: +HYDR100T15 PO; -HYDR100T27 PO
[2024-04-17 17:00] LABS: CREATININE 1.3 mg/dL (0.5-1.0); POTASSIUM 4.1 mmol/L (3.5-5.1)
== END | disposition home or self-care (01) ==
LOC: LAB 14:29
PROVIDERS: ATTEND Internal Medicine Cardiovascular Disease
DX: I10 Essential (primary) hypertension (principal)
CPT/HCPCS: 36415; 80048

== ENCOUNTER → 2024-04-19 | Outpatient (CLI) | payer OTHER, MEDICARE ==
[~2024-04-19] MED LIST changes: +IOHEXOL 350 MG/ML 100ML INFUS..BTL IV ONE; +METOPROLOL TARTRATE 1 MG/ML 5ML VIAL IV ONE
== END | disposition home or self-care (01) ==
LOC: RAH 09:57
PROVIDERS: ATTEND Internal Medicine Cardiovascular Disease
DX: I51.7 Cardiomegaly (principal); J90 Pleural effusion, not elsewhere classified; J98.11 Atelectasis; R07.9 Chest pain, unspecified; M47.815 Spondylosis without myelopathy or radiculopathy, thoracolumbar region
CPT/HCPCS: 75574; J3490; Q9967

== ENCOUNTER → 2024-07-21 | Outpatient (CLI) | payer OTHER, MEDICARE ==
[~2024-07-21] MED LIST changes: -IOHEXOL 350 MG/ML 100ML INFUS..BTL IV ONE; -METOPROLOL TARTRATE 1 MG/ML 5ML VIAL IV ONE
[2024-07-21 15:14] LABS: BASOPHILS # (AUTO) 0.05 K/uL (0.00-0.20); BASOPHILS % (AUTO) 0.4 % (0.0-5.0); EOSINOPHILS # (AUTO) 0.28 K/uL (0.00-0.70); EOSINOPHILS % (AUTO) 2.2 % (0.0-8.0); HEMATOCRIT 30.8 % (36-48); IMMATURE GRANULOCYTE ABSOLUTE 0.08 K/uL (0-1); LYMPHOCYTES # (AUTO) 2.2 K/uL (1.0-4.8); LYMPHOCYTES % (AUTO) 17.1 % (21.0-51.0); MEAN CORPUSCULAR HEMOGLOBIN 29.6 pg (27.0-33.0); MEAN CORPUSCULAR HGB CONC 31.2 g/dL (32.0-36.0); MEAN CORPUSCULAR VOLUME 95.1 fL (79-99); MONOCYTES # (AUTO) 0.8 K/uL (0.1-1.0); NEUTROPHILS # (AUTO) 9.3 K/uL (1.8-7.7); NEUTROPHILS % (AUTO) 73.7 % (40.0-77.0); PLATELET COUNT (AUTO) 288 K/uL (130-400); RED BLOOD CELL COUNT(AUTO) 3.24 MIL/uL (4.00-5.50); RED CELL DISTRIBUTION WIDTH 15.6 % (11.0-15.5); WHITE BLOOD COUNT (AUTO) 12.6 K/uL (4.8-10.8)
[2024-07-21 16:23] LABS: ALBUMIN 3.7 g/dL (3.5-5.0); BILIRUBIN,TOTAL 0.2 mg/dL (0.2-1.0); CREATININE 1.9 mg/dL (0.5-1.0); POTASSIUM 4.4 mmol/L (3.5-5.1); TOTAL PROTEIN, SERUM 7.9 g/dL (6.0-8.3)
[2024-07-21 16:55] LABS: DIGOXIN 1.95 ng/mL (0.50-2.00); MAGNESIUM 2.3 mg/dL (1.80-2.40)
== END | disposition home or self-care (01) ==
LOC: LAB 11:35
PROVIDERS: ATTEND Nurse Practitioner Acute Care
DX: I10 Essential (primary) hypertension (principal); Z79.899 Other long term (current) drug therapy
CPT/HCPCS: 36415; 80053; 80162; 83735; 85025

== ENCOUNTER 2025-03-08 09:02 | Inpatient (IN) | payer OTHER, MEDICARE ==
[~2025-03-08] VITALS: Ht 149.9 cm; Wt 74.5 kg
[~2025-03-08 09:02] MED LIST changes: +ALLO100T PO; +AMLO-258 PO; -APIX5TAB PO; +ASPI-1005 PO; +ATOR40TA71 PO; +BACL10TA PO; +BOSU100T PO; +BUDE0.5A3 IH; -CLOP-31 PO; +CLOP75TA32 PO; +DOXY100T2 PO; +DRON400T7 PO; -FESO4TAB PO; +FURO20TA4 PO; -FURO40TA5 PO; -HYDR100T15 PO; +HYDR25TA67 PO; -HYDR50TA37 PO; +IPRNEB IH; -ISOS30TA92 PO; +LEVA15HF3 IH; -LEVO-70 PO; -LEVO5TAB13 PO; +LEVO750T68 PO; +LORA-997 PO; -METO100T14 PO; +NITR0.4T50 SL; +PANT40TA54 PO; +PRED5DRO17 OD; -TERA2CAP4 PO
[2025-03-08 09:26] LABS: IMMATURE GRANULOCYTE ABSOLUTE 0.07 K/uL (0-1); NUCLEATED RED BLOOD CELLS 0.0 % (0.0-0.19); PLATELET COUNT (AUTO) 275 K/uL (130-400); RED BLOOD CELL COUNT(AUTO) 3.60 MIL/uL (4.00-5.50); RED CELL DISTRIBUTION WIDTH 18.6 % (11.0-15.5); WHITE BLOOD COUNT (AUTO) 13.8 K/uL (4.8-10.8)
[2025-03-08 09:40] LABS: CREATINE KINASE, TOTAL 125.0 U/L (21-232); CREATININE 2.0 mg/dL (0.5-1.0); GLOMERULAR FILTR. RATE CALC 25.0 mL/min (>90); GLUCOSE,RANDOM 124.0 mg/dL (70-105); SODIUM SERUM 141.0 mmol/L (136-145); UREA NITROGEN, BLOOD 35.0 mg/dL (7-18)
--- NOTE | 2025-03-08 10:15 | EKG ---
[facility] Test Date: 2025-03-08 Test Time: 09:12:37 Pat Name: ALFONZO MEDINA Department: ED Room: 406 Gender: F Auditor: [id number] : 1950 Requested By: CHARLETTE DOCKERY Order Number: [id number] Reading MD: Dudley Allen Measurements Intervals [place] Rate: 69 P: 71 IN: 169 QRS: 51 QRSD: 88 T: 219 QT: 410 QTc: 441 Interpretive Statements Sinus rhythm Anterior infarct, old Nonspecific T abnormalities, lateral leads Compared to ECG 10/25/2024 11:23:53 T-wave abnormality now present Sinus tachycardia no longer present Early repolarization no longer present Myocardial infarct finding still present Electronically Signed On 03-09-2025 15:02:07 CDT by Dudley Allen Please click the below link to view image of tracing.
--- NOTE | 2025-03-08 10:30 | ERN ---
General Chief Complaint: Weakness Stated Complaint: WEAKNESS X3 DAYS Time Seen by MD: 09:04 Source: patient, family History of Present Illness Initial Comments Patient is a 74-year-old female coming in with multiple complaints. Per family member patient has been presenting with generalized body weakness for three days. Patient does has a extensive history of repeated pleural effusions with chronic conditions of cml. Family members were concerned because she has been ambulating and has not been eating the same. Allergies: Coded Allergies: vancomycin (Unverified Allergy, Severe, ANAPHALAXIS, 01/09/22) STATES THROAT CLOSES, SOB pregabalin (Unverified Allergy, Intermediate, 02/21/15) tachycardia tramadol (Unverified Allergy, Unknown, 10/11/24) Home Meds Active Scripts Levofloxacin (Levaquin 750Mg Tabs) 750 Mg Tablet, 1 TAB PO QODAY for 12 Days, #7 TAB 0 Refills Prov:PEDRO WILDER 11/20/24 Ipratropium [place] (Atrovent Neb Soln) 0.2 Mg/Ml (0.02 %) Soln, 0.5 MG IH [id number] for 7 Days, #1 BOX Prov:PEDRO WILDER 11/20/24 Doxycycline Hyclate (Doxycycline Hyclate) 100 Mg Tablet, 100 MG PO BID for 10 Days, #20 TAB Prov:PEDRO WILDER 11/20/24 Budesonide (Budesonide) 0.5 Mg/2 Ml Ampul.neb, 0.5 MG IH BID for 7 Days, #1 BOX Prov:PEDRO WILDER 11/20/24 Levofloxacin (Levaquin 750Mg Tabs) 750 Mg Tablet, 1 TAB PO DAILY for 5 Days, #5 TAB 0 Refills Prov:SHANE THRASHER BRIGHT CUTTER 10/27/24 Furosemide (Furosemide) 20 Mg Tablet, 2 TAB PO QMOWEFR for 30 Days, #60 TAB Prov:SHANE THRASHER BRIGHT CUTTER 10/27/24 Reported Medications Hydralazine HCl (Hydralazine HCl) 25 Mg Tablet, 10 MG PO QID, TAB 11/16/24 Baclofen (Baclofen) 10 Mg Tablet, 1 TAB PO HS for 30 Days, #90 TAB 0 Refills 11/16/24 Baclofen (Baclofen) 10 Mg Tablet, 10 MG PO HSPRN PRN for PAIN, TAB 10/27/24 Loratadine (Allergy Relief) 10 Mg Tablet, 10 MG PO DAILY, TAB 10/12/24 Levalbuterol Tartrate (Levalbuterol Tartrate Hfa) 45 Mcg/Actuation Hfa.aer.ad, 2 PUFF IH [id number] for 30 Days, #15 GM 0 Refills 10/12/24 Dronedarone Hydrochloride (Multaq) 400 Mg Tablet, 1 TAB PO BID for 30 Days, #60 TAB 0 Refills 10/12/24 Nitroglycerin (Nitroglycerin) 0.4 Mg Tab.subl, 0.4 MG SL AD PRN for CHEST PAIN, TAB.SL 10/12/24 Bosutinib (Bosulif) 100 Mg Tablet, 200 MG PO PM DUE AT 8:30 PM DAILY 08/08/24 Prednisolone Acetate (Prednisolone Acetate) 1 % Drops.susp, 1 DROP OD TID 08/08/24 Aspirin (ASPIRIN 81MG CHEW TAB) 81 Mg Tab.chew, 81 MG PO DAILY, TAB.CHEW 08/08/24 Amlodipine Besylate (Amlodipine Besylate) 10 Mg Tablet, 1 TAB PO DAILY 08/08/24 Allopurinol (Allopurinol) 100 Mg Tablet, 1 TAB PO DAILY 08/08/24 Atorvastatin Calcium (Atorvastatin Calcium) 40 Mg Tablet, 1 TAB PO DAILY 08/08/24 Pantoprazole Sodium (Pantoprazole Sodium) 40 Mg Tablet.dr, 1 TAB PO DAILYBKFST PER PT DUE AT 8:30 AM DAILY 08/08/24 Clopidogrel Bisulfate (Clopidogrel) 75 Mg Tablet, 75 MG PO DAILY, TAB 08/08/24 Past Medical History Past Medical History: Diabetes-Type II, High Cholesterol, Hypertension, Pneumonia, Other Medical History Other: LEUKEMIA (CHEMO), HX OF PLEURAL EFFUSION Past Surgical History: Cholecystectomy, Other Surgical History Other: BILATERAL TOE AMPUTATION ROS Dictation CONSTITUTIONAL: No chills, no fever, weakness, no diaphoresis, malaise. HEAD/FACE: No signs of trauma. EENT: No eye pain, no blurred vision, no tearing, no double vision, no ear pain, no ear discharge, no nose pain, no nasal congestion, no throat pain, no throat swelling, no mouth pain. RESPIRATORY: No cough, no orthopnea, SOB, no stridor, no wheezing. CARDIOVASCULAR: No chest pain, no edema, no palpitations, no syncope. GASTROINTESTINAL/ABDOMINAL: No abdominal pain, no constipation, no diarrhea, no nausea, no vomiting. GENITOURINARY: No abnormal discharge, no dysuria, no frequent urination, no hematuria. No complaints of pain in the genitals. MUSCULOSKELETAL: No back pain, no gout, no joint pain, no joint swelling, no muscle pain, no muscle stiffness, no neck pain. INTEGUMENTARY: No change in color, no change in hair/nails, no dryness, no lesion, no lumps, no rash. NEUROLOGICAL/PSYCH: No anxiety, not depressed, no emotional problem, no headache, no numbness, no pre-existing deficit, no history of seizures, no tremors, no weakness. HEMATOLOGIC/LYMPHATIC: Not anemic, no history of blood clots, no apparent bleeding, no bruising, glands not swollen. All Systems Negative, Except as Noted. Physical Exam Physical Exam Dictation VITAL SIGNS: Reviewed. GENERAL APPEARANCE: Alert, oriented x3, no acute distress, obese. HEAD AND FACE: Non-traumatic. EYES: PERRL, pink conjunctivas, eyelid no trauma, anterior chamber clear. EARS: Pinnas intact and no signs of trauma or erythema. Ear canals clear and no discharge. TMs no erythema. NOSE: No discharge, no bleeding. OROPHARYNX: Mouth normal, teeth no caries, tongue pink. Pharynx clear, no erythema. Tonsils no exudates, no abscesses noted. Mucous membrane moist. NECK: Supple, non-tender, no thyromegaly, no masses, no JVD, no bruits. BREAST: Deferred. CHEST: No tenderness, no crepitus, no paradoxical movement, no retractions. LUNGS: Clear, well-ventilated, symmetric, no rales, no wheezing, no rhonchi, no stridor, good breath sounds bilaterally. HEART: Regular rate, regular rhythm, no murmur, no gallops. VASCULAR: No peripheral edema. ABDOMEN: Soft, positive bowel sounds, nondistended, no guarding, nontender, no rebound, no masses no hepatomegaly, no splenomegaly, no Hernandez's sign, no hernias. RECTAL: Deferred. GENITAL: Deferred. NEUROLOGICAL: Normal speech, gross motor function intact, gross sensory function intact. MUSCULOSKELETAL: Neck nontender, full range of motion, back nontender, full range of motion. EXTREMITIES: Nontender, full range of motion. SKIN: Color pink, dry, no turgor, no rash, no lacerations, no abrasions, no contusions. LYMPHATICS: Deferred. Results Laboratory and Microbiology Lab and Micro Result Laboratory Tests Test 03/08/25 09:18 03/08/25 11:20 White Blood Count 13.8 K/uL (4.8-10.8) H Red Blood Count 3.60 MIL/uL (4.00-5.50) L Hemoglobin 10.0 g/dL (12.0-16.0) L Hematocrit 31.7 % (36-48) L Mean Corpuscular Volume 88.1 fL (79-99) Mean Corpuscular Hemoglobin 27.8 pg (27.0-33.0) Mean Corpuscular Hemoglobin Concent 31.5 g/dL (32.0-36.0) L Red Cell Distribution Width 18.6 % (11.0-15.5) H Platelet Count 275 K/uL (130-400) Mean Platelet Volume 9.6 fL (7.5-10.5) Immature Granulocyte % (Auto) 0.5 % (0-1) Neutrophils (%) (Auto) 77.1 % (40.0-77.0) H Lymphocytes (%) (Auto) 16.1 % (21.0-51.0) L Monocytes (%) (Auto) 4.5 % (3.0-13.0) Eosinophils (%) (Auto) 1.5 % (0.0-8.0) Basophils (%) (Auto) 0.3 % (0.0-5.0) Neutrophils # (Auto) 10.6 K/uL (1.8-7.7) H Lymphocytes # (Auto) 2.2 K/uL (1.0-4.8) Monocytes # (Auto) 0.6 K/uL (0.1-1.0) Eosinophils # (Auto) 0.21 K/uL (0.00-0.70) Basophils # (Auto) 0.04 K/uL (0.00-0.20) Absolute Immature Granulocyte (auto 0.07 K/uL (0-1) Nucleated Red Blood Cells 0.0 % (0.0-0.19) Red Blood Cell Morphology See comments Sodium Level 141 mmol/L (136-145) Potassium Level 4.3 mmol/L (3.5-5.1) Chloride Level 107 mmol/L (101-111) Carbon Dioxide Level 21 mmol/L (21-32) Blood Urea Nitrogen 35 mg/dL (7-18) H Creatinine 2.0 mg/dL (0.5-1.0) H Glomerular Filtration Rate Calc 25 mL/min (>90) Random Glucose 124 mg/dL (70-105) H Total Calcium 9.0 mg/dL (8.5-10.1) Magnesium Level 2.70 mg/dL (1.80-2.40) H Total Creatine Kinase 125 U/L (21-232) # Troponin I High Sensitivity 63 ng/L (4-50) *H B-Type Natriuretic Peptide 159 pg/mL (0-100) H Urine Color YELLOW (YELLOW) Urine Appearance CLEAR (CLEAR) Urine pH 6.0 (5.0-8.0) Urine Specific [place] 1.015 (1.001-1.031) Urine Protein 30 mg/dL (NEGATIVE) H Urine Glucose (UA) NEGATIVE mg/dL (NEGATIVE) Urine Ketones NEGATIVE mg/dL (NEGATIVE) Urine Occult Blood TRACE-INTACT (NEGATIVE) H Urine Nitrate POSITIVE (NEGATIVE) H Urine Bilirubin NEGATIVE mg/dL (NEGATIVE) Urine Urobilinogen 0.2 mg/dL (0.2-1.0) Urine Leukocyte Esterase SMALL Bobby/uL (NEGATIVE) H Urine RBC 0-1 /HPF (0-1) Urine WBC 6-10 /HPF (0-1) H Urine Squamous Epithelial Cells Rare /HPF (0-2) Urine Bacteria Moderate /HPF (None Seen) H Labs Reviewed?: Yes EKG/XRAY/US/CT/MRI EKG Comment 03/08/2025 time 9:12 a.m. Ventricular rate 69 Sinus rhythm [place] [address] wave elevation or depression X-RAY Comment [address] [address] IMAGING REPORT Signed PATIENT: ALFONZO MEDINA MR#: [id number] : 1950 SEX: F AGE: 74 LOCATION: [facility] ORDER [id number] STATUS: REG ER REPORT#: [id number] SERVICE 6 REASON: weakness ORDERING PHYSICIAN: CHARLETTE DOCKERY MD PROCEDURE: CXR1VW - CHEST 1VW CHEST 1VW HISTORY: Weakness COMPARISON: None FINDINGS: A frontal projection of the chest was obtained. There are bilateral pulmonary infiltrates suggestive of pulmonary vascular congestion with possible superimposed pneumonitis. Small right pleural effusion is seen. The heart is enlarged. Gender changes are seen. No evidence of aortic calcification is seen. IMPRESSION: 1. Bilateral pulmonary infiltrates are seen suggestive of pulmonary vascular congestion with possible superimposed pneumonitis. DICTATED BY: BO LOPEZ MD DATE: 03/08/25 120 ELECTRONICALLY SIGNED BY: BO LOPEZ MD DATE: 03/08/25 121 [facility] MDM: Differential diagnosis: Weakness, malaise, dehydration, ACS, history of CML, RIGHT LUNG PULMONARY INFILTRATE Rationale: Tests considered and ordered secondary to shared decision making include: labs, ECG and radiology Previous outside records reviewed: Old ER visits. Risk of complication and/or morbidity or mortality of patient management: None Medications-Per medication reconciliation Need for hospitalization: Patient does meet criteria for hospitalization. Need for emergency major/minor surgery: No There are no social concerns with this patient. Prescription drug management Prescriptions will include symptomatic care Patient's prior external medical records from other ER visits were reviewed by me as indicated. Prior testing and results from previous visits were reviewed. Prior tests were taken into account with medical decision making and resource utilization, independent historian/historians were used to obtain complete medical history. I independently interpreted the test that were performed, results were reviewed by me and considered findings on radiology if ordered. Medical management and examination interpretation discussions were had by me with other qualified healthcare professionals as indicated for the patient's care. PATIENT WILL BE ADMITTED UNDER THE CARE OF [facility] FOR ONGOING MANAGEMENT. ED Course Orders Procedure Category Date Status Time Cbc With Differential LAB 03/08/25 Complete 09:07 Chest 1vw RAD 03/08/25 Resulted 09:07 12 Lead Ekg Tracing- EKG 03/08/25 Complete Technical 09:07 Magnesium LAB 03/08/25 Complete 09:07 Creatine Kinase, Total LAB 03/08/25 Complete 09:07 Troponin I High LAB 03/08/25 Complete Sensitivity 09:07 Urinalysis Profile LAB 03/08/25 Complete 09:07 Basic Metabolic Panel LAB 03/08/25 Complete 09:07 B-Type Natriuretic LAB 03/08/25 Complete Peptide 09:07 Culture Urine RADHA 03/08/25 Logged 11:38 Vital Signs Date Time Temp Pulse Resp B/P (MAP) Pulse Ox O2 Delivery O2 Flow Rate FiO2 03/08/25 10:54 97.3 72 24 158/52 95 Nasal Cannula* 3 32 03/08/25 09:25 97.3 74 24 161/52 Nasal Cannula* 3 32 03/08/25 09:03 97.9 67 16 155/61 97 Room Air 0 DX & DISP Disposition: Inpatient Decision to Admit Time: 13:08 Departure Impression: Primary Impression: Elevated troponin Additional Impressions: Acute kidney injury superimposed on chronic kidney disease, Pleural effusion on right, UTI (urinary tract infection) Condition: Stable Referrals: HERLINDA DE LA PAZ MD (PCP) CHARLETTE DOCKERY MD Mar 08, 2025 10:30
[2025-03-08 11:32] LABS: APPEARANCE,URINE CLEAR (CLEAR); GLUCOSE, URINE (UA) NEGATIVE (NEGATIVE); LEUKOCYTE ESTERASE ,URINE SMALL Leu/uL (NEGATIVE); NITRATE,URINE POSITIVE (NEGATIVE); OCCULT BLOOD,URINE TRACE-INTACT (NEGATIVE)
[2025-03-08 11:37] LABS: ADD UA MICROSCOPIC YES
[2025-03-08 11:41] LABS: SQUAMOUS EPITHELIAL CELL,UR Rare /HPF (0-2)
--- NOTE | 2025-03-08 12:07 | NUR ---
HAND OFF REORT GIVEN TO SHERLYN GARVEY AT 1205, PT STABLE NO DISTRESS VITALS WNL NO C/O PAIN NOW. INFORMED DAUGHTER AT BEDSIDE, ALL PERSONAL BELONGINGS MOVED WITH PT VIA STRETCHER WITH JANELL GARVEY.
--- NOTE | 2025-03-08 12:10 | NUR ---
assumed patient care.
--- NOTE | 2025-03-08 12:12 | HMCIMG ---
CHEST 1VW HISTORY: Weakness COMPARISON: None FINDINGS: A frontal projection of the chest was obtained. There are bilateral pulmonary infiltrates suggestive of pulmonary vascular congestion with possible superimposed pneumonitis. Small right pleural effusion is seen. The heart is enlarged. Gender changes are seen. No evidence of aortic calcification is seen. IMPRESSION: 1. Bilateral pulmonary infiltrates are seen suggestive of pulmonary vascular congestion with possible superimposed pneumonitis.
--- NOTE | 2025-03-08 15:51 | NUR ---
DCP: HOME Pt currently lives with dgt Merlyn Arreguin [phone] who was at bedside. Pt has a walker, commode, wheelchair, and shower chair. Pt uses O2 from [facility]. Pt has a provider that goes 11.5 hrs M-F and 3.5hrs Sat/Sun and they assist with all ADLs. Pt has home physical therapy through [facility] 2x a week. PCP is Dr. Abiel Diana and uses [facility] for any RX needs. At DC pt will go home and family can assist with transportation. Addendum: 03/08/25 at 1554 by PEDRO LEWIS SS Amended: Links added.
[2025-03-08] MEDS ORDERED: PoTASSium chl 10% ELIXIR 20MEQ 20 MEQ/15 ML UDCUP PO PRN (17:00)
[2025-03-08] MEDS ORDERED: LACTULOSE 20 GM/30 ML UDCUP PO PRN (17:00)
[2025-03-08] MEDS ORDERED: FLUT16H EN (17:04)
[2025-03-08] MEDS ORDERED: METO25TA6 PO (17:04)
--- NOTE | 2025-03-08 17:06 | NUR ---
Home medications reviewed; pending to be reconsiled by admitting physician.
--- NOTE | 2025-03-08 17:16 | NUR ---
Called dietary for new diet.
--- NOTE | 2025-03-08 21:19 | HP ---
[facility] HISTORY & PHYSICAL Date Patient Seen: Mar 08, 2025 Time of Visit: 21:11 Supervising Physician: Dr. Kent Primary Care Physician:Robert Diana MD Outpatient Specialists: [ ] Inpatient Consults: [ ] PROBLEM LIST: Sepsis suspected from urinary tract source POA. UTI POA. EUGENE on CKD stage IIIB POA. Elevated troponin POA. Bilateral pleural effusion right>left POA. Leukemia currently on Bosutinib POA. Diabetes mellitus type 2. Hypertension. HPI: This is a 74-year-old female patient who has a past medical history that is significant for Diabetes-Type II, High Cholesterol, Hypertension , pleural effusion and leukemia currently on Bosutinib. The patient presented to the emergency department today with complaint of generalized weakness x3 days and family's concern with regards to weak gait and poor feeding. Upon workup in the emergency department, the initial vital signs showed no febrile events blood pressure was slightly elevated and the patient was placed on a nasal cannula for oxygen supplementation. Laboratory data was notable for WBC of 13.8, H and H and platelet count were stable. Chemistry panel showed elevated renal parameters with a BUN of 35, creatinine of 2.0 and a BNP of 159. Troponin was slightly elevated at 63. Urinalysis showed yellow clear appearance with positive nitrates, small leukocyte esterase and moderate bacteria. Imaging of the chest showed bilateral pulmonary infiltrates and vascular congestion. The patient was started on antibiotic therapy with IV Rocephin and was later admitted for further inpatient evaluation and management of her condition. At the time of my visit, the patient remained in the emergency department awaiting bed assignment. No other complaint. PAST MEDICAL HX: see above PAST SURGICAL HX: noncontributory SOCIAL HISTORY: No tobacco, ETOH, or illicit drug use Coded Allergies: vancomycin (Unverified Allergy, Severe, ANAPHALAXIS, 01/09/22) STATES THROAT CLOSES, SOB pregabalin (Unverified Allergy, Intermediate, 02/21/15) tachycardia tramadol (Unverified Allergy, Unknown, 10/11/24) REVIEW OF SYSTEMS: 12 point ROS reviewed with patient. Pertinent positives mentioned above. Otherwise negative. PHYSICAL EXAM: GENERAL: Alert, weak, awake oriented x 3 HEENT: EOMI, Sclera non icteric, moist mucosa NECK: Supple, no JVD, trachea midline LUNGS: Clear breath sounds bilaterally. No wheezes HEART: Regular rate and rhythm. Normal S1 and S2, without murmurs ABD: Abdomen soft, nontender. Bowel sounds present EXT: No clubbing cyanosis or edema NEURO: Alert and oriented to person, follows commands Vital Signs (last 8hr) Date Time Temp Pulse Resp B/P (MAP) Pulse Ox O2 Delivery O2 Flow Rate FiO2 03/08/25 16:00 98.4 48 24 152/53 2 Nasal Cannula* 2 28 LABS: Hematology Labs: Test 03/08/25 09:18 Range/Units White Blood Count 13.8 H 4.8-10.8 K/uL Red Blood Count 3.60 L 4.00-5.50 MIL/uL Hemoglobin 10.0 L 12.0-16.0 g/dL Hematocrit 31.7 L 36-48 % Mean Corpuscular Volume 88.1 79-99 fL Mean Corpuscular Hemoglobin 27.8 27.0-33.0 pg Mean Corpuscular Hemoglobin Concent 31.5 L 32.0-36.0 g/dL Red Cell Distribution Width 18.6 H 11.0-15.5 % Platelet Count 275 130-400 K/uL Mean Platelet Volume 9.6 7.5-10.5 fL Immature Granulocyte % (Auto) 0.5 0-1 % Neutrophils (%) (Auto) 77.1 H 40.0-77.0 % Lymphocytes (%) (Auto) 16.1 L 21.0-51.0 % Monocytes (%) (Auto) 4.5 3.0-13.0 % Eosinophils (%) (Auto) 1.5 0.0-8.0 % Basophils (%) (Auto) 0.3 0.0-5.0 % Neutrophils # (Auto) 10.6 H 1.8-7.7 K/uL Lymphocytes # (Auto) 2.2 1.0-4.8 K/uL Monocytes # (Auto) 0.6 0.1-1.0 K/uL Eosinophils # (Auto) 0.21 0.00-0.70 K/uL Basophils # (Auto) 0.04 0.00-0.20 K/uL Absolute Immature Granulocyte (auto 0.07 0-1 K/uL Nucleated Red Blood Cells 0.0 0.0-0.19 % Red Blood Cell Morphology See comments Chemistry Labs: Test 03/08/25 20:38 03/08/25 09:18 Range/Units Whole Blood Glucose 144 H 70-110 MG/DL Sodium Level 141 136-145 mmol/L Potassium Level 4.3 3.5-5.1 mmol/L Chloride Level 107 101-111 mmol/L Carbon Dioxide Level 21 21-32 mmol/L Blood Urea Nitrogen 35 H 7-18 mg/dL Creatinine 2.0 H 0.5-1.0 mg/dL Glomerular Filtration Rate Calc 25 >90 mL/min Random Glucose 124 H 70-105 mg/dL Total Calcium 9.0 8.5-10.1 mg/dL Magnesium Level 2.70 H 1.80-2.40 mg/dL Total Creatine Kinase 125 # 21-232 U/L Troponin I High Sensitivity 63 *H 4-50 ng/L B-Type Natriuretic Peptide 159 H 0-100 pg/mL DIAGNOSTICS / RADIOLOGY RESULTS: [ ] PLAN Patient was admitted to medical-surgical. Urine sample we will be sent for culture and the patient will be started on antibiotic therapy with IV Rocephin. We will repeat surveillance labs in the morning. We are going to request troponins x2 and we will follow the trend. We will repeat surveillance labs in the morning and we will replace electrolyte deficits. We will monitor the patient's progress and response to management. I discussed the findings and plan for further management with the patient. We will monitor the patient's progress and response to management. We will continue to provide general supportive care, GI and DVT prophylaxis. Further orders per attending MD and hospital course. NEURO: Minimize central acting medications as possible. Maintain fall precautions, adequate lighting during the day PULMONARY: Supplemental 02 as needed. Maintain aspiration precautions at all times CARDIOVASCULAR: Follow hemodynamics. Vital signs per facility protocol GI & NUTRITION: Continue with nutritional support. Continue stool softeners and laxatives as needed. KIDNEYS & ELECTROLYTES: Strict monitoring of intake, output and overall fluid balance. Avoid nephrotoxic medications to the extent possible. Medications to be dosed according to renal function. Monitor electrolytes and replace as needed ENDOCRINE: Maintain blood glucose between 100-180 at all times. Hypoglycemia protocol in place INFECTIOUS DISEASE: Trend temperature, WBC and procalcitonin level Follow cultures, deescalate antibiotics as soon as possible. Panculture if new onset fever ONCOLOGY/HEMATOLOGY/COAGULATION: Monitor for s/s of bleeding Monitor hemoglobin, coagulation studies as needed SKIN: Pressure ulcer prevention per facility protocol Specialty mattress ORTHO/REHAB: Continue PT/OT Prophylaxis: Continue GI and DVT prophylaxis Code Status: Full Resuscitation Disposition: TBD Other: Patient was seen and case discussed with rounding MD. Plan of care was discus sed and agreed upon. GERARDO RAINEY SALVAGE ENGINEER Mar 08, 2025 21:19
[2025-03-09] VITALS (9 sets, daily range): BP systolic 137–170; BP diastolic 54–85; PULSE 70–74; RESP 18–23; TEMP 97.5–98.4; O2SAT 95–97
--- NOTE | 2025-03-09 00:24 | NUR ---
REPORT GIVEN TO NURSE DAMIAN FOR RM [id number], ALL QUESTIONS ANSWERED AT THIS TIME. NURSE EXPECTING PT ARRIVAL TO THE UNIT.
[2025-03-09] MEDS ORDERED: ERGO500093 PO (01:47)
[2025-03-09 06:09] LABS: CREATININE 1.6 mg/dL (0.5-1.0); GLOMERULAR FILTR. RATE CALC 33.0 mL/min (>90); GLUCOSE,RANDOM 106.0 mg/dL (70-105); SODIUM SERUM 141.0 mmol/L (136-145); UREA NITROGEN, BLOOD 31.0 mg/dL (7-18)
[2025-03-09 06:59] LABS: IMMATURE GRANULOCYTE ABSOLUTE 0.09 K/uL (0-1); NUCLEATED RED BLOOD CELLS 0.0 % (0.0-0.19); PLATELET COUNT (AUTO) 223 K/uL (130-400); RED BLOOD CELL COUNT(AUTO) 3.33 MIL/uL (4.00-5.50); RED CELL DISTRIBUTION WIDTH 18.6 % (11.0-15.5); WHITE BLOOD COUNT (AUTO) 15.2 K/uL (4.8-10.8)
--- NOTE | 2025-03-09 10:19 | HMCIMG ---
CHEST 2VWS HISTORY: Pleural effusion COMPARISON: 03/08/2025 FINDINGS: Frontal and lateral projections of the chest were obtained. There are right pleural effusion with compressive atelectasis. Mild congestive changes are seen. The heart is not enlarged. No evidence of aortic calcification is seen. Degenerative changes are seen of the thoracolumbar spine. IMPRESSION: 1. Right pleural effusion with compressive atelectasis. Mild congestive changes.
--- NOTE | 2025-03-09 13:23 | HMCIMG ---
CT CHEST W/O CONTRAST HISTORY: Pleural effusion COMPARISON: None TECHNIQUE: Multiple sequential axial images of the chest were obtained from the thoracic inlet through upper abdomen. Patient was not given contrast through intravenous route. FINDINGS: Right pleural effusion is seen. There are bilateral pulmonary infiltrates. Coronary arterial calcifications are seen. There is atherosclerosis. No pleural effusion or pericardial effusion is seen. There is no evidence of pneumothorax. There are normal size mediastinal and hilar lymph nodes. The heart is not enlarged. Degenerative changes of the thoracolumbar spine are present. There is no evidence of adrenal nodule. IMPRESSION: 1. Pleural effusion with compressive atelectasis. Bilateral pulmonary infiltrates. CT was performed with one or more following dose reduction techniques: automated exposure control, adjustment of the mA and kv according to patient's size, or use of a iterative reconstruction technique.
--- NOTE | 2025-03-09 15:54 | PN ---
[facility] PROGRESS NOTE Date Patient Seen: Mar 09, 2025 Time of Visit: 15:54 Supervising Physician: Dr. Elijah Sow Primary Care Physician: Dr.Oziel Abiel Diana MD Inpatient Consults: NA PROBLEM LIST: Acute on chronic hypoxemic respiratory failure, home O2 dependent, baseline 2 L Moderate recurrent right-sided pleural effusion with recent right thoracentesis by IR with 1L removal on 11/16/2024, Transudative Acute cystitis Refractory Bilateral Multifocal pneumonia EUGENE on CKD stage IIIB, POA Chronic myelogenous leukemia on oral chemotherapy Pulmonary hypertension, [id number] per echo September 2024 Moderate aortic and mitral stenosis, with preserved LVEF of 65%, echo September 2024 Paroxysmal atrial fibrillation, not on AC given hx of spontaneous subdural hemorrhages Peripheral arterial disease with history of stents on lower extremities and bilateral TMA Anemia of chronic disease Chronic kidney disease stage IIIB Diabetes mellitus type 2 Hypertension Hyperlipidemia Macular degeneration of left eye History of CVA Obesity, BMI 32.5 INTERVAL HISTORY: Patient assessed at bedside. AAOX3. Currently on 02@3LPM via NC. Complains of dyspnea with exertion, but states she feels better today compared to yesterday. CT chest without contrast shows R>L pleural effusions. Per daughter at bedside, patient last took Plavix on 03/07/2025 at 1100. Will plan for right thoracentesis on 03/10/25. Will continue on IV Lasix and repeat CXR in AM. Continues on IV ABX for pneumonia. Denies any chest pain, abdominal pain, nausea or vomiting. Prognosis is guarded REVIEW OF SYSTEMS: 12 point ROS reviewed with patient. Pertinent positives mentioned above. Otherwise negative. PHYSICAL EXAM: GENERAL: Alert, weak, awake oriented x 3 HEENT: EOMI, Sclera non icteric, moist mucosa NECK: Supple, no JVD, trachea midline LUNGS: Diminshed breath sounds bilaterally. No wheezes HEART: Regular rate and rhythm. Normal S1 and S2, without murmurs ABD: Abdomen soft, nontender. Bowel sounds present EXT: No clubbing cyanosis or edema NEURO: AAOX3, follows commands Vital Signs (last 8hr) Date Time Temp Pulse Resp B/P (MAP) Pulse Ox O2 Delivery O2 Flow Rate FiO2 03/09/25 11:32 97.5 72 19 139/54 94 Nasal Cannula 3.0 03/09/25 08:02 98.4 71 19 137/63 95 Nasal Cannula 3.0 03/09/25 08:00 95 Nasal Cannula* 3 32 LABS: Hematology Labs: Test 03/09/25 06:46 03/08/25 09:18 Range/Units White Blood Count 15.2 H 4.8-10.8 K/uL Red Blood Count 3.33 L 4.00-5.50 MIL/uL Hemoglobin 9.3 L 12.0-16.0 g/dL Hematocrit 29.9 L 36-48 % Mean Corpuscular Volume 89.8 79-99 fL Mean Corpuscular Hemoglobin 27.9 27.0-33.0 pg Mean Corpuscular Hemoglobin Concent 31.1 L 32.0-36.0 g/dL Red Cell Distribution Width 18.6 H 11.0-15.5 % Platelet Count 223 130-400 K/uL Mean Platelet Volume 10.2 7.5-10.5 fL Immature Granulocyte % (Auto) 0.6 0-1 % Neutrophils (%) (Auto) 76.3 40.0-77.0 % Lymphocytes (%) (Auto) 14.6 L 21.0-51.0 % Monocytes (%) (Auto) 6.2 3.0-13.0 % Eosinophils (%) (Auto) 2.0 0.0-8.0 % Basophils (%) (Auto) 0.3 0.0-5.0 % Neutrophils # (Auto) 11.6 H 1.8-7.7 K/uL Lymphocytes # (Auto) 2.2 1.0-4.8 K/uL Monocytes # (Auto) 0.9 0.1-1.0 K/uL Eosinophils # (Auto) 0.31 0.00-0.70 K/uL Basophils # (Auto) 0.05 0.00-0.20 K/uL Absolute Immature Granulocyte (auto 0.09 0-1 K/uL Nucleated Red Blood Cells 0.0 0.0-0.19 % Red Blood Cell Morphology See comments Chemistry Labs: Test 03/09/25 10:31 03/09/25 05:32 03/09/25 00:27 03/08/25 09:18 Range/Units Whole Blood Glucose 98 70-110 MG/DL Sodium Level 141 136-145 mmol/L Potassium Level 4.2 3.5-5.1 mmol/L Chloride Level 109 101-111 mmol/L Carbon Dioxide Level 19 L 21-32 mmol/L Blood Urea Nitrogen 31 H 7-18 mg/dL Creatinine 1.6 H 0.5-1.0 mg/dL Glomerular Filtration Rate Calc 33 >90 mL/min Random Glucose 106 H 70-105 mg/dL Lactic Acid Level 0.9 0.8-2.5 mmol/L Total Calcium 8.3 L 8.5-10.1 mg/dL Magnesium Level 2.50 H 1.80-2.40 mg/dL Troponin I High Sensitivity 47 4-50 ng/L Procalcitonin < 0.05 L 0.05-0.5 ng/mL Total Creatine Kinase 125 # 21-232 U/L B-Type Natriuretic Peptide 159 H 0-100 pg/mL DIAGNOSTICS / RADIOLOGY RESULTS: SERVICE [id number] REASON: pleural effusion ORDERING PHYSICIAN: CATHERINE SOW EDITOR DICTIONARY PROCEDURE: CHEST WO - CT CHEST W/O CONTRAST CT CHEST W/O CONTRAST HISTORY: Pleural effusion COMPARISON: None TECHNIQUE: Multiple sequential axial images of the chest were obtained from the thoracic inlet through upper abdomen. Patient was not given contrast through intravenous route. FINDINGS: Right pleural effusion is seen. There are bilateral pulmonary infiltrates. Coronary arterial calcifications are seen. There is atherosclerosis. No pleural effusion or pericardial effusion is seen. There is no evidence of pneumothorax. There are normal size mediastinal and hilar lymph nodes. The heart is not enlarged. Degenerative changes of the thoracolumbar spine are present. There is no evidence of adrenal nodule. IMPRESSION: 1. Pleural effusion with compressive atelectasis. Bilateral pulmonary infiltrates. PLAN Possible right thoracentesis in AM AM labs AM CXR Continue on Cefepime and Azithromycin Hold Plavix for now NEURO: Minimize central acting medications as possible. Maintain fall precautions, adequate lighting during the day PULMONARY: Supplemental 02 as needed. Maintain aspiration precautions at all times CARDIOVASCULAR: Follow hemodynamics. Vital signs per facility protocol GI & NUTRITION: Continue with nutritional support. Continue stool softeners and laxatives as needed. KIDNEYS & ELECTROLYTES: Strict monitoring of intake, output and overall fluid balance. Avoid nephrotoxic medications to the extent possible. Medications to be dosed according to renal function. Monitor electrolytes and replace as needed ENDOCRINE: Maintain blood glucose between 100-180 at all times. Hypoglycemia protocol in place INFECTIOUS DISEASE: Trend temperature, WBC and procalcitonin level Follow cultures, deescalate antibiotics as soon as possible. Panculture if new onset fever ONCOLOGY/HEMATOLOGY/COAGULATION: Monitor for s/s of bleeding Monitor hemoglobin, coagulation studies as needed SKIN: Pressure ulcer prevention per facility protocol Specialty mattress ORTHO/REHAB: Continue PT/OT Prophylaxis: Continue GI and DVT prophylaxis Code Status: Full Resuscitation Disposition: TBD Total critical time: 35 minutes Other: Patient was seen and case discussed with jer DUFFY. Plan of care was discussed and agreed upon. CATHERINE SOW EDITOR DICTIONARY Mar 09, 2025 15:54
[2025-03-09] MEDS: AZITHROMYCIN 500MG+NS 250ML 250 ML IVPB SCH (23:40)
[2025-03-10] VITALS (16 sets, daily range): BP systolic 126–171; BP diastolic 53–69; PULSE 70–95; RESP 18–22; TEMP 97.6–98.6; O2SAT 93–97
[2025-03-10 05:13] LABS: IMMATURE GRANULOCYTE ABSOLUTE 0.06 K/uL (0-1); NUCLEATED RED BLOOD CELLS 0.0 % (0.0-0.19); PLATELET COUNT (AUTO) 240 K/uL (130-400); RED BLOOD CELL COUNT(AUTO) 3.37 MIL/uL (4.00-5.50); RED CELL DISTRIBUTION WIDTH 18.5 % (11.0-15.5); WHITE BLOOD COUNT (AUTO) 14.7 K/uL (4.8-10.8)
[2025-03-10 05:27] LABS: INR 0.96 (0.85-1.15)
[2025-03-10 05:57] LABS: ASPARTATE AMINOTRANSFERASE 21.0 U/L (10-37); CREATININE 1.5 mg/dL (0.5-1.0); GLOMERULAR FILTR. RATE CALC 36.0 mL/min (>90); GLUCOSE,RANDOM 122.0 mg/dL (70-105); SODIUM SERUM 143.0 mmol/L (136-145); TOTAL PROTEIN, SERUM 7.2 g/dL (6.0-8.3); UREA NITROGEN, BLOOD 27.0 mg/dL (7-18)
[2025-03-10] MEDS: PoTASSium chloRIDE 20MEQ ER 20 MEQ ERTAB PO PRN (06:28)
[2025-03-10] MEDS ORDERED: 0.9%NACL 50ML IV SCH (09:30)
[2025-03-10] MEDS: ZOSYN 3.375GM +NS 50ML IVPB SCH (10:52)
--- NOTE | 2025-03-10 14:50 | PN ---
[facility] PROGRESS NOTE Date Patient Seen: Mar 10, 2025 Time of Visit: 14:49 Supervising Physician: Dr. Scott Caraballo Primary Care Physician: Dr.Oziel Abiel Diana MD Inpatient Consults: NA PROBLEM LIST: Acute on chronic hypoxemic respiratory failure, home O2 dependent, baseline 2 L Moderate recurrent right-sided pleural effusion with recent right thoracentesis by IR with 1L removal on 11/16/2024, Transudative, due to oral chemotherapy Bosutinib Acute cystitis (+) Klebsiella ESBL Refractory Bilateral Multifocal pneumonia EUGENE on CKD stage IIIB, POA Chronic myelogenous leukemia on oral chemotherapy Bosutinib Pulmonary hypertension, [id number] per echo September 2024 Moderate aortic and mitral stenosis, with preserved LVEF of 65%, echo September 2024 Paroxysmal atrial fibrillation, not on AC given hx of spontaneous subdural hemorrhages Peripheral arterial disease with history of stents on lower extremities and bilateral TMA Anemia of chronic disease Chronic kidney disease stage IIIB Diabetes mellitus type 2 Hypertension Hyperlipidemia Macular degeneration of left eye History of CVA Obesity, BMI 32.5 INTERVAL HISTORY: Patient assessed at bedside. AAOX3. Currently on 02@3LPM via [place]. Continues with dyspnea with exertion. CT chest without contrast shows R>L pleural effusions. Per daughter at bedside, patient last took Plavix on 03/07/2025 at 1100. Will plan for right thoracentesis on 03/12/25. Will continue on IV Lasix. Continues on IV ABX for pneumonia and cystitis. Urine culture positive for klebsiell and ESBL, IV ABX changed to Zosyn. Denies any chest pain, abdominal pain, nausea or vomiting. Prognosis is guarded REVIEW OF SYSTEMS: 12 point ROS reviewed with patient. Pertinent positives mentioned above. Otherwise negative. PHYSICAL EXAM: GENERAL: Alert, weak, awake oriented x 3 HEENT: EOMI, Sclera non icteric, moist mucosa NECK: Supple, no JVD, trachea midline LUNGS: Diminshed breath sounds bilaterally. No wheezes HEART: Regular rate and rhythm. Normal S1 and S2, without murmurs ABD: Abdomen soft, nontender. Bowel sounds present EXT: No clubbing cyanosis or edema NEURO: AAOX3, follows commands Vital Signs (last 8hr) Date Time Temp Pulse Resp B/P (MAP) Pulse Ox O2 Delivery O2 Flow Rate FiO2 03/10/25 12:00 98.6 71 18 127/67 96 Nasal Cannula 3.0 28 03/10/25 11:17 79 22 03/10/25 11:17 22 N/Cannula Low lpm 3.0 32 03/10/25 08:00 98.2 78 18 126/53 96 Nasal Cannula 3.0 28 03/10/25 07:01 78 22 03/10/25 07:00 22 N/Cannula Low lpm 3.0 32 LABS: Hematology Labs: Test 03/10/25 05:00 Range/Units White Blood Count 14.7 H 4.8-10.8 K/uL Red Blood Count 3.37 L 4.00-5.50 MIL/uL Hemoglobin 9.2 L 12.0-16.0 g/dL Hematocrit 29.2 L 36-48 % Mean Corpuscular Volume 86.6 79-99 fL Mean Corpuscular Hemoglobin 27.3 27.0-33.0 pg Mean Corpuscular Hemoglobin Concent 31.5 L 32.0-36.0 g/dL Red Cell Distribution Width 18.5 H 11.0-15.5 % Platelet Count 240 130-400 K/uL Mean Platelet Volume 10.3 7.5-10.5 fL Immature Granulocyte % (Auto) 0.4 0-1 % Neutrophils (%) (Auto) 74.4 40.0-77.0 % Lymphocytes (%) (Auto) 15.0 L 21.0-51.0 % Monocytes (%) (Auto) 6.7 3.0-13.0 % Eosinophils (%) (Auto) 3.2 0.0-8.0 % Basophils (%) (Auto) 0.3 0.0-5.0 % Neutrophils # (Auto) 10.9 H 1.8-7.7 K/uL Lymphocytes # (Auto) 2.2 1.0-4.8 K/uL Monocytes # (Auto) 1.0 0.1-1.0 K/uL Eosinophils # (Auto) 0.47 0.00-0.70 K/uL Basophils # (Auto) 0.04 0.00-0.20 K/uL Absolute Immature Granulocyte (auto 0.06 0-1 K/uL Nucleated Red Blood Cells 0.0 0.0-0.19 % Chemistry Labs: Test 03/10/25 11:28 03/10/25 05:00 03/09/25 05:32 Range/Units Whole Blood Glucose 104 70-110 MG/DL Bedside Glucose Comment Notified Nurse Sodium Level 143 136-145 mmol/L Potassium Level 3.5 3.5-5.1 mmol/L Chloride Level 107 101-111 mmol/L Carbon Dioxide Level 22 21-32 mmol/L Blood Urea Nitrogen 27 H 7-18 mg/dL Creatinine 1.5 H 0.5-1.0 mg/dL Glomerular Filtration Rate Calc 36 >90 mL/min Random Glucose 122 H 70-105 mg/dL Total Calcium 8.4 L 8.5-10.1 mg/dL Magnesium Level 2.10 1.80-2.40 mg/dL Total Bilirubin 0.2 0.2-1.0 mg/dL Aspartate Amino Transf (AST/SGOT) 21 10-37 U/L Alanine Aminotransferase (ALT/SGPT) 27 12-78 U/L Alkaline Phosphatase 102 50-136 U/L Total Protein 7.2 6.0-8.3 g/dL Albumin 3.5 3.5-5.0 g/dL Procalcitonin < 0.05 L 0.05-0.5 ng/mL Lactic Acid Level 0.9 0.8-2.5 mmol/L Troponin I High Sensitivity 47 4-50 ng/L Coagulation Labs: Test 03/10/25 05:00 Range/Units Prothrombin Time 10.2 9.6-11.6 SEC Prothromb Time International Ratio 0.96 0.85-1.15 DIAGNOSTICS / RADIOLOGY RESULTS: PROCEDURE: CXR1VW - CHEST 1VW EXAM: CR Chest, 1 View. CLINICAL HISTORY: pleural effusion COMPARISON: None provided. FINDINGS: LUNGS: Bibasilar airspace opacities. Bilateral pulmonary vascular congestion. PLEURAL SPACES: No pneumothorax. Moderate right pleural effusion. MEDIASTINUM: Right cardiac and mediastinal contour is obscured. BONES: No acute osseous abnormality. IMPRESSION: 1. Moderate right pleural effusion with bibasilar airspace opacities and pulmonary vascular congestion, compatible with heart failure /[place] PLAN Possible right thoracentesis on 03/12/2025 AM labs Changed IV Cefepime to Zosyn due to urine culture positive for ESBL, E.coli Hold Plavix for now NEURO: Minimize central acting medications as possible. Maintain fall precautions, adequate lighting during the day PULMONARY: Supplemental 02 as needed. Maintain aspiration precautions at all times CARDIOVASCULAR: Follow hemodynamics. Vital signs per facility protocol GI & NUTRITION: Continue with nutritional support. Continue stool softeners and laxatives as needed. KIDNEYS & ELECTROLYTES: Strict monitoring of intake, output and overall fluid balance. Avoid nephrotoxic medications to the extent possible. Medications to be dosed according to renal function. Monitor electrolytes and replace as needed ENDOCRINE: Maintain blood glucose between 100-180 at all times. Hypoglycemia protocol in place INFECTIOUS DISEASE: Trend temperature, WBC and procalcitonin level Follow cultures, deescalate antibiotics as soon as possible. Panculture if new onset fever ONCOLOGY/HEMATOLOGY/COAGULATION: Monitor for s/s of bleeding Monitor hemoglobin, coagulation studies as needed SKIN: Pressure ulcer prevention per facility protocol Specialty mattress ORTHO/REHAB: Continue PT/OT Prophylaxis: Continue GI and DVT prophylaxis Code Status: Full Resuscitation Disposition: TBD Total critical time: 35 minutes, excluding procedures Other: Patient was seen and case discussed with jer DUFFY. Plan of care was discussed and agreed upon. CATHERINE SOW NP Mar 10, 2025 14:50
--- NOTE | 2025-03-10 15:24 | HMCIMG ---
EXAM: CR Chest, 1 View. CLINICAL HISTORY: pleural effusion COMPARISON: None provided. FINDINGS: LUNGS: Bibasilar airspace opacities. Bilateral pulmonary vascular congestion. PLEURAL SPACES: No pneumothorax. Moderate right pleural effusion. MEDIASTINUM: Right cardiac and mediastinal contour is obscured. BONES: No acute osseous abnormality. IMPRESSION: 1. Moderate right pleural effusion with bibasilar airspace opacities and pulmonary vascular congestion, compatible with heart failure /[place]
[2025-03-11] VITALS (15 sets, daily range): BP systolic 126–156; BP diastolic 44–62; PULSE 69–82; RESP 18–24; TEMP 97.6–98.6; O2SAT 92–95
[2025-03-11 06:09] LABS: IMMATURE GRANULOCYTE ABSOLUTE 0.06 K/uL (0-1); NUCLEATED RED BLOOD CELLS 0.0 % (0.0-0.19); PLATELET COUNT (AUTO) 196 K/uL (130-400); RED BLOOD CELL COUNT(AUTO) 3.10 MIL/uL (4.00-5.50); RED CELL DISTRIBUTION WIDTH 18.3 % (11.0-15.5); WHITE BLOOD COUNT (AUTO) 12.3 K/uL (4.8-10.8)
[2025-03-11 06:29] LABS: ASPARTATE AMINOTRANSFERASE 16.0 U/L (10-37); CREATININE 1.5 mg/dL (0.5-1.0); GLOMERULAR FILTR. RATE CALC 36.0 mL/min (>90); GLUCOSE,RANDOM 110.0 mg/dL (70-105); SODIUM SERUM 143.0 mmol/L (136-145); TOTAL PROTEIN, SERUM 7.0 g/dL (6.0-8.3); UREA NITROGEN, BLOOD 22.0 mg/dL (7-18)
[2025-03-11 06:54] LABS: PLATELET FUNCTION ANALYSIS ADP 120 SEC (62-100); PLATELET FUNCTION ANALYSIS EPI 137 SEC (55-192)
[2025-03-11 06:55] LABS: PFA INTERPRETATION PFA INTERPRETATION; PLATELET COUNT (AUTO) 196 K/uL (130-400)
--- NOTE | 2025-03-11 14:04 | PN ---
[facility] PROGRESS NOTE Date Patient Seen: Mar 11, 2025 Time of Visit: 14:04 Supervising Physician: Dr. Scott Caraballo Primary Care Physician: Dr.Oziel Abiel Diana MD Inpatient Consults: NA PROBLEM LIST: Acute on chronic hypoxemic respiratory failure, home O2 dependent, baseline 2 L Moderate recurrent right-sided pleural effusion with recent right thoracentesis by IR with 1L removal on 11/16/2024, Transudative, due to oral chemotherapy Bosutinib Acute cystitis (+) Klebsiella ESBL Refractory Bilateral Multifocal pneumonia Immunocompromised host EUGENE on CKD stage IIIB, POA Chronic myelogenous leukemia on oral chemotherapy Bosutinib Pulmonary hypertension, [id number] per echo September 2024 Moderate aortic and mitral stenosis, with preserved LVEF of 65%, echo September 14 025 Paroxysmal atrial fibrillation, not on AC given hx of spontaneous subdural hemorrhages Peripheral arterial disease with history of stents on lower extremities and bilateral TMA Anemia of chronic disease Chronic kidney disease stage IIIB Diabetes mellitus type 2 Hypertension Hyperlipidemia Macular degeneration of left eye History of CVA Obesity, BMI 32.5 INTERVAL HISTORY: Patient assessed at bedside. AAOX3. Currently on 02@3LPM via [place]. Continues with dyspnea with exertion. CT chest without contrast shows R>L pleural effusions. Per daughter at bedside, patient last took Plavix on 03/07/2025 at 1100. Will plan for right thoracentesis on 03/12/25. Will continue on IV Lasix. Continues on IV ABX for pneumonia and cystitis. Urine culture positive for klebsiella and ESBL, IV ABX changed to Zosyn and consult ID for outpatient IV ABX. Explained to daughter and patient that pleural effusions are likely from chemotherapy Bosutinib, daughter states she is aware and was told by oncologist in [place] but she was told this one was the last drug they could use for patient that is cardiac friendly. Denies any chest pain, abdominal pain, nausea or vomiting. Prognosis is guarded. REVIEW OF SYSTEMS: 12 point ROS reviewed with patient. Pertinent positives mentioned above. Otherwise negative. PHYSICAL EXAM: GENERAL: Alert, weak, awake oriented x 3 HEENT: EOMI, Sclera non icteric, moist mucosa NECK: Supple, no JVD, trachea midline LUNGS: Diminshed breath sounds bilaterally. No wheezes HEART: Regular rate and rhythm. Normal S1 and S2, without murmurs ABD: Abdomen soft, nontender. Bowel sounds present EXT: No clubbing cyanosis or edema NEURO: AAOX3, follows commands Vital Signs (last 8hr) Date Time Temp Pulse Resp B/P (MAP) Pulse Ox O2 Delivery O2 Flow Rate FiO2 03/11/25 12:56 97.5 82 18 126/62 98 Room Air 03/11/25 11:42 78 18 03/11/25 11:42 22 N/Cannula Low lpm 3.0 32 03/11/25 08:33 97.9 76 18 128/59 95 Nasal Cannula 3.0 03/11/25 06:46 77 20 03/11/25 06:45 75 22 N/Cannula Low lpm 3.0 32 LABS: Hematology Labs: Test 03/11/25 05:50 Range/Units White Blood Count 12.3 H 4.8-10.8 K/uL Red Blood Count 3.10 L 4.00-5.50 MIL/uL Hemoglobin 8.5 L 12.0-16.0 g/dL Hematocrit 27.7 L 36-48 % Mean Corpuscular Volume 89.4 79-99 fL Mean Corpuscular Hemoglobin 27.4 27.0-33.0 pg Mean Corpuscular Hemoglobin Concent 30.7 L 32.0-36.0 g/dL Red Cell Distribution Width 18.3 H 11.0-15.5 % Platelet Count 196 130-400 K/uL Mean Platelet Volume 10.2 7.5-10.5 fL Immature Granulocyte % (Auto) 0.5 0-1 % Neutrophils (%) (Auto) 76.8 40.0-77.0 % Lymphocytes (%) (Auto) 12.9 L 21.0-51.0 % Monocytes (%) (Auto) 6.5 3.0-13.0 % Eosinophils (%) (Auto) 3.0 0.0-8.0 % Basophils (%) (Auto) 0.3 0.0-5.0 % Neutrophils # (Auto) 9.4 H 1.8-7.7 K/uL Lymphocytes # (Auto) 1.6 1.0-4.8 K/uL Monocytes # (Auto) 0.8 0.1-1.0 K/uL Eosinophils # (Auto) 0.37 0.00-0.70 K/uL Basophils # (Auto) 0.04 0.00-0.20 K/uL Absolute Immature Granulocyte (auto 0.06 0-1 K/uL Nucleated Red Blood Cells 0.0 0.0-0.19 % Chemistry Labs: Test 03/11/25 11:58 03/11/25 05:50 03/10/25 16:22 03/10/25 05:00 Range/Units Whole Blood Glucose 122 H 70-110 MG/DL Sodium Level 143 136-145 mmol/L Potassium Level 3.9 3.5-5.1 mmol/L Chloride Level 108 101-111 mmol/L Carbon Dioxide Level 25 21-32 mmol/L Blood Urea Nitrogen 22 H 7-18 mg/dL Creatinine 1.5 H 0.5-1.0 mg/dL Glomerular Filtration Rate Calc 36 >90 mL/min Random Glucose 110 H 70-105 mg/dL Total Calcium 8.3 L 8.5-10.1 mg/dL Magnesium Level 2.10 1.80-2.40 mg/dL Total Bilirubin 0.2 0.2-1.0 mg/dL Aspartate Amino Transf (AST/SGOT) 16 10-37 U/L Alanine Aminotransferase (ALT/SGPT) 25 12-78 U/L Alkaline Phosphatase 98 50-136 U/L Total Protein 7.0 6.0-8.3 g/dL Albumin 3.4 L 3.5-5.0 g/dL Bedside Glucose Comment Notified Nurse Procalcitonin < 0.05 L 0.05-0.5 ng/mL Coagulation Labs: Test 03/11/25 05:50 03/10/25 05:00 Range/Units Platelet Function Screen (ADP) 120 H 62-100 SEC Platelet Function Scrn (Epinephrine 137 55-192 SEC Platelet Function Interpretation PFA INTERPRETATION Prothrombin Time 10.2 9.6-11.6 SEC Prothromb Time International Ratio 0.96 0.85-1.15 NA PLAN Possible right thoracentesis on 03/12/2025 AM labs Changed IV Cefepime to Zosyn due to urine culture positive for ESBL, E.coli Consult ID for outpatient IV ABX Hold Plavix for now NEURO: Minimize central acting medications as possible. Maintain fall precautions, adequate lighting during the day PULMONARY: Supplemental 02 as needed. Maintain aspiration precautions at all times CARDIOVASCULAR: Follow hemodynamics. Vital signs per facility protocol GI & NUTRITION: Continue with nutritional support. Continue stool softeners and laxatives as needed. KIDNEYS & ELECTROLYTES: Strict monitoring of intake, output and overall fluid balance. Avoid nephrotoxic medications to the extent possible. Medications to be dosed according to renal function. Monitor electrolytes and replace as needed ENDOCRINE: Maintain blood glucose between 100-180 at all times. Hypoglycemia protocol in place INFECTIOUS DISEASE: Trend temperature, WBC and procalcitonin level Follow cultures, deescalate antibiotics as soon as possible. Panculture if new onset fever ONCOLOGY/HEMATOLOGY/COAGULATION: Monitor for s/s of bleeding Monitor hemoglobin, coagulation studies as needed SKIN: Pressure ulcer prevention per facility protocol Specialty mattress ORTHO/REHAB: Continue PT/OT Prophylaxis: Continue GI and DVT prophylaxis Code Status: Full Resuscitation Disposition: TBD Total critical time: 35 minutes excluding procedures Other: Patient was seen and case discussed with jer DUFFY. Plan of care was discussed and agreed upon. CATHERINE SOW NP Mar 11, 2025 14:04
[2025-03-12] VITALS (17 sets, daily range): BP systolic 125–161; BP diastolic 55–78; PULSE 65–95; RESP 16–24; TEMP 97.6–98.5; O2SAT 91–97
[2025-03-12 04:18] LABS: NUCLEATED RED BLOOD CELLS 0.0 % (0.0-0.19); PLATELET COUNT (AUTO) 215.0 K/uL (130-400); RED BLOOD CELL COUNT(AUTO) 3.05 MIL/uL (4.00-5.50); RED CELL DISTRIBUTION WIDTH 18.2 % (11.0-15.5); WHITE BLOOD COUNT (AUTO) 11.5 K/uL (4.8-10.8)
[2025-03-12 04:28] LABS: INR 0.98 (0.85-1.15)
[2025-03-12 04:36] LABS: CREATININE 1.3 mg/dL (0.5-1.0); GLOMERULAR FILTR. RATE CALC 43.0 mL/min (>90); GLUCOSE,RANDOM 112.0 mg/dL (70-105); SODIUM SERUM 144.0 mmol/L (136-145); UREA NITROGEN, BLOOD 19.0 mg/dL (7-18)
[2025-03-12] MEDS: MAGNESIUM 2GM PREMIX 50ML 50 ML IV PRN (05:38)
--- NOTE | 2025-03-12 13:13 | CONS ---
INFECTIOUS DISEASE CONSULTATION NOTE DATE OF SERVICE: 03/11/2025 REQUESTING PHYSICIAN: Terri Kent NP REASON FOR CONSULTATION: UTI; pneumonia, on antibiotic management. HISTORY OF PRESENT ILLNESS: A 74-year-old female with history of recurrent UTI, pleural effusion, CML, and atrial fibrillation who presented to the hospital with generalized body weakness of 3 days' duration. The patient also found with decreased oral intake. Complaining of shortness of breath. CT of the chest has been done, which shows large right pleural effusion. The patient's urine culture grew Klebsiella pneumoniae. The patient has been started on Zosyn and azithromycin. Denies sore throat or rhinorrhea. . PAST MEDICAL HISTORY: * Diabetes mellitus. * Dyslipidemia. * Hypertension. * Chronic pleural effusion. * CML. * Atrial fibrillation. * Subdural hematoma. * Aortic stenosis. PAST SURGICAL HISTORY: * Right foot TMA. * Left foot TMA. * Multiple thoracentesis. * Bony marrow biopsy. * ALLERGIES: No known drug allergies. CURRENT MEDICATIONS: Reviewed. SOCIAL HISTORY: No alcohol, tobacco or illicit drug use. FAMILY HISTORY: Positive for diabetes mellitus. REVIEW OF SYSTEMS: CONSTITUTIONAL: Positive for weakness. No fever. No weight gain. No night sweats. EYES: No eye pain. No photophobia or diplopia. HENT: No sore throat. No rhinorrhea or earache. NECK: No neck pain or neck swelling. RESPIRATORY: No cough. No hemoptysis or pleuritic pain. CARDIOVASCULAR: No chest pain. No palpitation or orthopnea. GASTROINTESTINAL: Denies nausea, vomiting. No abdominal pain. : No dysuria. Urinary frequency is seen . CENTRAL NERVOUS SYSTEM: No headache, dyspnea, or slurred speech. PSYCHIATRY: No depression. No suicidal ideation. MUSCULOSKELETAL: No joint pain. No joint swelling. PHYSICAL EXAMINATION: GENERAL: Elderly female, awake, not in distress. VITAL SIGNS: Temperature 97.5, pulse 82, respiratory rate 18, BNP 126/62. EYES: No icterus. Pupils equal and reactive. HENT: No oral thrush seen. Moist oral mucosa. NECK: Supple. No JVD or thyromegaly. LUNGS: Decreased air entry at the left side. She has crackles bilaterally. CARDIOVASCULAR SYSTEM: S1 and S2 regular. No murmur heard. ABDOMEN: Full, soft, obese, nontender. Bowel sounds are present. CENTRAL NERVOUS SYSTEM: Awake, alert, oriented x 3. No focal deficits. SKIN: No rashes, no itchiness. LYMPHATIC: No peripheral lymphadenopathy. BACK: No deformity, no pressure ulcer. MUSCULOSKELETAL: No joint swelling, erythema, or tenderness. LABORATORY DATA: Sodium 143, potassium 3.9, BUN 22, creatinine 1.5. WBC 12.3, hemoglobin 8.5, platelets 196. Urine culture grew Klebsiella pneumoniae. RADIOLOGY: CT chest shows large right pleural effusion. ASSESSMENT: A 74-year-old female presented with cough and shortness of breath. CURRENT PROBLEMS: Include: * Urinary tract infection. * Acute hypoxic respiratory failure. * Pneumonia. * Chronic urinary infection . * Chronic myeloid leukemia. * Renal failure. * Debility. PLAN: * Continue Zosyn. * Continue azithromycin. * Continue Lasix. * Continue pain management. * Continue . * Continue nutritional support. * Monitor electrolytes. * The patient will be followed up closely. Thank you for allowing me to participate in the care of this patient. TID: [id number] RECEIPT: [id number]
--- NOTE | 2025-03-12 15:11 | HMCIMG ---
EXAM: CR Chest, 1 View. CLINICAL HISTORY: chest x-ray status post thoracentesis COMPARISON: Radiograph from earlier today FINDINGS: There is interval right thoracentesis with significantly decreased small right pleural effusion. There is no pneumothorax appreciated. Persistent bilateral perihilar and bibasilar airspace disease. Heart size is stable. Central pulmonary vascular congestion. IMPRESSION: 1. Interval right thoracentesis with decreased right pleural effusion. No pneumothorax. 2. Bilateral perihilar and bibasilar airspace disease. 3. Central pulmonary vascular congestion. /[place]
--- NOTE | 2025-03-12 15:41 | PN ---
INFECTIOUS DISEASE PROGRESS NOTE Date of Service: Mar 12, 2025 SUBJECTIVE: Patient was seen and examined at bedside in room 406. Patient is sitting up on the edge of the bed and continues on oxygen via nasal cannula 2 L/min. Patient is afebrile, temperature is 98.2 the WBC continues trending down and is 11.5 today. The final urine culture results came back positive for ESBL, Klebsiella pneumoniae. We will have case management evaluate patient for referral to [facility] for outpatient IV antibiotics with Zosyn x 10 days. Prescription as written and the midline will be placed today. PHYSICAL EXAM EYES: Anicteric. Pupils equal and reactive. HENT: No oral thrush seen, moist Oral mucosa. NECK: Supple, no JVD or thyromegaly. LUNGS: Good air entry. No rales, no rhonchi. Oxygen support. CARDIOVASCULAR: S1, S2 regular. No murmur heard. ABDOMEN: Soft, non tender, bowel sounds present, no organomegaly. CENTRAL NERVOUS SYSTEM: Awake, alert, oriented x 3. SKIN: No rashes, no swelling. LYMPHATICS: No peripheral lymphadenopathy. MUSCULOSKELETAL: No joint swelling, erythema or tenderness. EXTREMITIES: No cyanosis or clubbing. BACK: No deformity, no pressure ulcer. GENITOURINARY: No dysuria or hematuria. Vital Sign (Last 12 Hours) 03/12/25 03/12/25 03/12/25 03/12/25 04:00 06:18 06:18 07:57 Temp 98.4 98.1 Pulse 69 65 65 75 Resp 20 20 20 16 B/P (MAP) 147/59 137/62 Pulse Ox 96 96 O2 Delivery Nasal Cannula N/Cannula Low lpm Nasal Cannula O2 Flow Rate 2.0 2.0 2.0 03/12/25 03/12/25 03/12/25 03/12/25 11:21 11:22 11:23 14:15 Temp 98.2 Pulse 71 71 74 80 Resp 20 20 18 18 B/P (MAP) 128/57 150/72 Pulse Ox 98 98 O2 Delivery N/A Room Air Room Air Nasal Cannula O2 Flow Rate 2.0 FiO2 21 03/12/25 14:38 Pulse 83 Resp 18 B/P (MAP) 161/62 Pulse Ox 97 O2 Delivery Nasal Cannula O2 Flow Rate 2.0 Intake & Output (last 24hrs) 03/11/25 03/11/2525 15:00 23:00 07:00 Intake Total 1500 ml Output Total 400 ml Balance 1500 ml -400 ml LABS: Laboratory: Test 03/12/25 10:35 03/12/25 03:31 03/11/25 05:50 03/10/25 16:22 Range/Units Whole Blood Glucose 111 H 70-110 MG/DL White Blood Count 11.5 H 4.8-10.8 K/uL Red Blood Count 3.05 L 4.00-5.50 MIL/uL Hemoglobin 8.7 L 12.0-16.0 g/dL Hematocrit 26.9 L 36-48 % Mean Corpuscular Volume 88.2 79-99 fL Mean Corpuscular Hemoglobin 28.5 27.0-33.0 pg Mean Corpuscular Hemoglobin Concent 32.3 32.0-36.0 g/dL Red Cell Distribution Width 18.2 H 11.0-15.5 % Platelet Count 215 130-400 K/uL Mean Platelet Volume 10.8 H 7.5-10.5 fL Nucleated Red Blood Cells 0.0 0.0-0.19 % Prothrombin Time 10.4 9.6-11.6 SEC Prothromb Time International Ratio 0.98 0.85-1.15 Activated Partial Thromboplast Time 32.5 26.3-35.5 SEC Sodium Level 144 136-145 mmol/L Potassium Level 3.5 3.5-5.1 mmol/L Chloride Level 106 101-111 mmol/L Carbon Dioxide Level 27 21-32 mmol/L Blood Urea Nitrogen 19 H 7-18 mg/dL Creatinine 1.3 H 0.5-1.0 mg/dL Glomerular Filtration Rate Calc 43 >90 mL/min Random Glucose 112 H 70-105 mg/dL Total Calcium 8.1 L 8.5-10.1 mg/dL Magnesium Level 1.80 1.80-2.40 mg/dL Immature Granulocyte % (Auto) 0.5 0-1 % Neutrophils (%) (Auto) 76.8 40.0-77.0 % Lymphocytes (%) (Auto) 12.9 L 21.0-51.0 % Monocytes (%) (Auto) 6.5 3.0-13.0 % Eosinophils (%) (Auto) 3.0 0.0-8.0 % Basophils (%) (Auto) 0.3 0.0-5.0 % Neutrophils # (Auto) 9.4 H 1.8-7.7 K/uL Lymphocytes # (Auto) 1.6 1.0-4.8 K/uL Monocytes # (Auto) 0.8 0.1-1.0 K/uL Eosinophils # (Auto) 0.37 0.00-0.70 K/uL Basophils # (Auto) 0.04 0.00-0.20 K/uL Absolute Immature Granulocyte (auto 0.06 0-1 K/uL Platelet Function Screen (ADP) 120 H 62-100 SEC Platelet Function Scrn (Epinephrine 137 55-192 SEC Platelet Function Interpretation PFA INTERPRETATION Total Bilirubin 0.2 0.2-1.0 mg/dL Aspartate Amino Transf (AST/SGOT) 16 10-37 U/L Alanine Aminotransferase (ALT/SGPT) 25 12-78 U/L Alkaline Phosphatase 98 50-136 U/L Total Protein 7.0 6.0-8.3 g/dL Albumin 3.4 L 3.5-5.0 g/dL Bedside Glucose Comment Notified Nurse DIAGNOSTICS / RADIOLOGY: PATIENT: ALFONZO MEDINA ACCT: [id number] LOC: [facility] U: [id number] AGE/SX: 74/F ROOM: [facility] RE03/08/[address]: ANJELICA SOW MD : 1950 BED: 1 DIS: STATUS: ADM IN TLOC: ------- ----- SPEC: [id number] [place]: 03/08/25 STATUS: COMP REQ: [id number] RECD: 03/09/[address]: CHARLETTE DOCKERY MD SOURCE: URINE CATH ENTR: 03/09/[address]: HERLINDA DE LA PAZ MD SPDESC: CATHERIZED ORDERED: AERO ID & SENS COMMENTS: CALLED TO: NURSE ANUPAMA Procedure Result Jenaro Date-Time AEROBIC ID & SENSITIVITIES Final 03/10/25-0643 MRL EXTENDED SPECTRUM BETA-LACTAMASE ORGANISM IDENTIFIED. CRITICAL RESULT WAS CALLED BY TOMMIE HASTINGS ON 03/10/25 AT 0641. CRITICAL VALUES WERE READ BACK AND ACKNOWLEDGED [place]LETTE HAIN[place] [place]ONY DESCRIPTION: DAY 1: COLONY COUNT: >100,000 CFU/ML GRAM NEGATIVE RODS IDENTIFICATION AND SENSITIVITY TO FOLLOW COMMENTS(R): ESBL KLEBSIELLA PNEUMONIAE K PNEUMO M.I.C. RX --------- ---- AZTREONAM >16 ESBL CEFAZOLIN >16 R* CEFTAZIDIME 16 ESBL CEFTAZIDIME/AVIBACTAM <=8 S CEFTRIAXONE >2 ESBL CIPROFLOXACIN 0.5 I GENTAMICIN <=2 S LEVOFLOXACIN 1 I NITROFURANTOIN 64 I MEROPENEM <=1 S PIPERACILLIN/TAZOBACTAM <=8 S TRIMETHOPRIM/SUFLAMETHOXAZOLE <=2/38 S KLEBSIELLA PNEUMONIAE: NEGATIVE/URINE COMBO 62 Lab Alert - ESBL (Extended-Spectrum Beta-Lactamase event producer) ASSESSMENT: Urinary tract infection with Klebsiella pneumoniae. Infection with multidrug resistant organism. Acute hypoxic respiratory failure. Pneumonia. Leukocytosis. Acute renal failure. Chronic myeloid leukemia. Diabetes mellitus. PLAN: Continue Zosyn IV. Continue azithromycin. Case management evaluation for referral to [facility] for outpatient IV antibiotics with Zosyn x 10 days. Prescription was written. Place Midline. Continue GI prophylaxis. Continue antidiabetic. Continue oxygen support. This case was reviewed and discussed with my supervising physician and the above assessment and plan was formulated and agreed upon. ATTESTATION BY PHYSICIAN I have seen and examined the patient. I reviewed the documentation, medical decision making, and treatment plan as noted by the mid-level provider above. I agree with the findings and plan of care. KVNG CARVALHO MD, MIRTA L [facility] Mar 12, 2025 15:40
--- NOTE | 2025-03-12 16:15 | PRN ---
Procedure performed: Thoracentesis Intraoperative US Body site: Right thoracentesis by Dr. Jose De Jesus Pascual Description of procedure: Consent obtained Consent waived due to emergency procedure Time out done Hand hygiene Intraoperative US used to localize pleural fluid and terry the skin at puncture site. Thoracentesis tray used. 750ml of turbid serosanguineous of Pleural fluid drained Fluid is sent for analysis. Pt tolerated procedure well Post procedure chest x ray was ordered and done, reviewed by Dr. Jose De Jesus Pascual, no pneumothorax. CATHERINE SOW CORN SHELLER OPERATOR Mar 12, 2025 16:15
--- NOTE | 2025-03-12 16:18 | PN ---
[facility] PROGRESS NOTE Date Patient Seen: Mar 12, 2025 Time of Visit: 16:18 Supervising Physician: Dr. Jose De Jesus Pascual Primary Care Physician: Dr.Oziel Abiel Diana MD Inpatient Consults: NA PROBLEM LIST: Acute on chronic hypoxemic respiratory failure, home O2 dependent, baseline 2 L Moderate recurrent right-sided pleural effusion with recent right thoracentesis by IR with 1L removal on 11/16/2024, Transudative, due to oral chemotherapy Bosutinib S/P right thoracentesis by Dr. Pascual on 03/12/2025 with 750ml removed, transudative per Lights criteria Acute cystitis (+) Klebsiella ESBL, pending outpatient IV ABX setup Refractory Bilateral Multifocal pneumonia Immunocompromised host EUGENE on CKD stage IIIB, POA Chronic myelogenous leukemia on oral chemotherapy Bosutinib Pulmonary hypertension, [id number] per echo September 2024 Moderate aortic and mitral stenosis, with preserved LVEF of 65%, echo September 2024 Paroxysmal atrial fibrillation, not on AC given hx of spontaneous subdural hemorrhages Peripheral arterial disease with history of stents on lower extremities and bilateral TMA Anemia of chronic disease Chronic kidney disease stage IIIB Diabetes mellitus type 2 Hypertension Hyperlipidemia Macular degeneration of left eye History of CVA Obesity, BMI 32.5 INTERVAL HISTORY: Patient assessed at bedside. AAOX3. Currently on 02@2LPM via NC. Continues with dyspnea with exertion. CT chest without contrast shows R>L pleural effusions. Per daughter at bedside, patient last took Plavix on 03/07/2025 at 1100. S/P right thoracentesis by Dr. Pascual with 750ml, tolerated well and post-thora CXR ne gative for pneumo. Transudative per Lights criteria. Continues on IV ABX for pneumonia and cystitis. Explained to daughter and patient that pleural effusions are likely from chemotherapy Bosutinib, daughter states she is aware and was told by oncologist in [place] but she was told this one was the last drug they could use for patient that is cardiac friendly. Denies any chest pain, abdominal pain, nausea or vomiting. Prognosis is guarded. Discharge once IV ABX outpatient has been setup by case management, midline in place. CM to work on possible portable oxygen concentrator per patient request. Patient only has portable tank. REVIEW OF SYSTEMS: 12 point ROS reviewed with patient. Pertinent positives mentioned above. Otherwise negative. PHYSICAL EXAM: GENERAL: Alert, weak, awake oriented x 3 HEENT: EOMI, Sclera non icteric, moist mucosa NECK: Supple, no JVD, trachea midline LUNGS: Diminshed breath sounds bilaterally. No wheezes HEART: Regular rate and rhythm. Normal S1 and S2, without murmurs ABD: Abdomen soft, nontender. Bowel sounds present EXT: No clubbing cyanosis or edema NEURO: AAOX3, follows commands Vital Signs (last 8hr) Date Time Temp Pulse Resp B/P (MAP) Pulse Ox O2 Delivery O2 Flow Rate FiO2 03/12/25 14:38 83 18 161/62 97 Nasal Cannula 2.0 03/12/25 14:15 80 18 150/72 98 Nasal Cannula 2.0 03/12/25 11:23 98.2 74 18 128/57 98 Room Air 03/12/25 11:22 71 20 N/A Room Air 21 03/12/25 11:21 71 20 LABS: Hematology Labs: Test 03/12/25 03:31 03/11/25 05:50 Range/Units White Blood Count 11.5 H 4.8-10.8 K/uL Red Blood Count 3.05 L 4.00-5.50 MIL/uL Hemoglobin 8.7 L 12.0-16.0 g/dL Hematocrit 26.9 L 36-48 % Mean Corpuscular Volume 88.2 79-99 fL Mean Corpuscular Hemoglobin 28.5 27.0-33.0 pg Mean Corpuscular Hemoglobin Concent 32.3 32.0-36.0 g/dL Red Cell Distribution Width 18.2 H 11.0-15.5 % Platelet Count 215 130-400 K/uL Mean Platelet Volume 10.8 H 7.5-10.5 fL Nucleated Red Blood Cells 0.0 0.0-0.19 % Immature Granulocyte % (Auto) 0.5 0-1 % Neutrophils (%) (Auto) 76.8 40.0-77.0 % Lymphocytes (%) (Auto) 12.9 L 21.0-51.0 % Monocytes (%) (Auto) 6.5 3.0-13.0 % Eosinophils (%) (Auto) 3.0 0.0-8.0 % Basophils (%) (Auto) 0.3 0.0-5.0 % Neutrophils # (Auto) 9.4 H 1.8-7.7 K/uL Lymphocytes # (Auto) 1.6 1.0-4.8 K/uL Monocytes # (Auto) 0.8 0.1-1.0 K/uL Eosinophils # (Auto) 0.37 0.00-0.70 K/uL Basophils # (Auto) 0.04 0.00-0.20 K/uL Absolute Immature Granulocyte (auto 0.06 0-1 K/uL Chemistry Labs: Test 03/12/25 10:35 03/12/25 03:31 03/11/25 05:50 03/10/25 16:22 Range/Units Whole Blood Glucose 111 H 70-110 MG/DL Sodium Level 144 136-145 mmol/L Potassium Level 3.5 3.5-5.1 mmol/L Chloride Level 106 101-111 mmol/L Carbon Dioxide Level 27 21-32 mmol/L Blood Urea Nitrogen 19 H 7-18 mg/dL Creatinine 1.3 H 0.5-1.0 mg/dL Glomerular Filtration Rate Calc 43 >90 mL/min Random Glucose 112 H 70-105 mg/dL Total Calcium 8.1 L 8.5-10.1 mg/dL Magnesium Level 1.80 1.80-2.40 mg/dL Total Bilirubin 0.2 0.2-1.0 mg/dL Aspartate Amino Transf (AST/SGOT) 16 10-37 U/L Alanine Aminotransferase (ALT/SGPT) 25 12-78 U/L Alkaline Phosphatase 98 50-136 U/L Total Protein 7.0 6.0-8.3 g/dL Albumin 3.4 L 3.5-5.0 g/dL Bedside Glucose Comment Notified Nurse Coagulation Labs: Test 03/12/25 03:31 03/11/25 05:50 Range/Units Prothrombin Time 10.4 9.6-11.6 SEC Prothromb Time International Ratio 0.98 0.85-1.15 Activated Partial Thromboplast Time 32.5 26.3-35.5 SEC Platelet Function Screen (ADP) 120 H 62-100 SEC Platelet Function Scrn (Epinephrine 137 55-192 SEC Platelet Function Interpretation PFA INTERPRETATION DIAGNOSTICS / RADIOLOGY RESULTS: PROCEDURE: CXR1VW - CHEST 1VW EXAM: CR Chest, 1 View. CLINICAL HISTORY: chest x-ray status post thoracentesis COMPARISON: Radiograph from earlier today FINDINGS: There is interval right thoracentesis with significantly decreased small right pleural effusion. There is no pneumothorax appreciated. Persistent bilateral perihilar and bibasilar airspace disease. Heart size is stable. Central pulmonary vascular congestion. IMPRESSION: 1. Interval right thoracentesis with decreased right pleural effusion. No pneumothorax. 2. Bilateral perihilar and bibasilar airspace disease. 3. Central pulmonary vascular congestion. PLAN AM CXR AM labs Changed IV Cefepime to Zosyn due to urine culture positive for ESBL, E.coli Hold Plavix for now NEURO: Minimize central acting medications as possible. Maintain fall precautions, adequate lighting during the day PULMONARY: Supplemental 02 as needed. Maintain aspiration precautions at all times CARDIOVASCULAR: Follow hemodynamics. Vital signs per facility protocol GI & NUTRITION: Continue with nutritional support. Continue stool softeners and laxatives as needed. KIDNEYS & ELECTROLYTES: Strict monitoring of intake, output and overall fluid balance. Avoid nephrotoxic medications to the extent possible. Medications to be dosed according to renal function. Monitor electrolytes and replace as needed ENDOCRINE: Maintain blood glucose between 100-180 at all times. Hypoglycemia protocol in place INFECTIOUS DISEASE: Trend temperature, WBC and procalcitonin level Follow cultures, deescalate antibiotics as soon as possible. Panculture if new onset fever ONCOLOGY/HEMATOLOGY/COAGULATION: Monitor for s/s of bleeding Monitor hemoglobin, coagulation studies as needed SKIN: Pressure ulcer prevention per facility protocol Specialty mattress ORTHO/REHAB: Continue PT/OT Prophylaxis: Continue GI and DVT prophylaxis Code Status: Full Resuscitation Disposition: TBD Total critical time: 35 minutes, excluding procedures Other: Patient was seen and case discussed with jer DUFFY. Plan of care was discussed and agreed upon. CATHERINE SOW NP Mar 12, 2025 16:18
--- NOTE | 2025-03-12 16:20 | HMCIMG ---
EXAM: CR Chest, 1 View. CLINICAL HISTORY: Pleural effusions COMPARISON: Prior chest radiograph dated 03/10/2025 FINDINGS: Bibasilar airspace opacities. Improved left lung aeration. Moderate, slightly increased right pleural effusion with effusion tracking along the minor fissure. Mild cardiomegaly with pulmonary vascular congestion.IMPRESSION: 1. Moderate, slightly increased right pleural effusion. 2. Cardiomegaly with pulmonary vascular congestion. /[place]
--- NOTE | 2025-03-12 16:55 | NUR ---
DC PLAN SPOKE TO PATIENT AND FAMILY ABOUT [facility]. KOFI SIGNED. PACKET MADE AND SENT. RIGHT DONNELLY 03/12 Addendum: 03/12/25 at 1658 by TEQUILA SOLER RN CM Amended: Links added.
--- NOTE | 2025-03-12 18:00 | NUR ---
NURSING NOTE Patient had thoracentesis performed at bedside today. 750mL of fluid removed and sent to lab for testing. Patient tolerated procedure. Patient continues on ordered antibiotic therapy. Midline placed today in anticipation of outpatient antibiotic therapy. Family remains supportive and at bedside. Will continue to monitor.
[2025-03-12 18:55] LABS: APPEARANCE BODY FLUID CLOUDY (CLEAR); COLOR,BODY FLUID ORANGE (LT YELLOW); PH PLEURAL FLUID 7.5; SPECIMENTYPE,BODY FLUID PLEURAL; TOTAL VOLUME,BODY FLUID 750 mL
[2025-03-12 19:08] LABS: GLUCOSE PLEURAL FLUID 152; PROTEIN PLEURAL FLUID 3.2 mg/dL
[2025-03-12 19:14] LABS: BODY FLUID RBC 51758 /cu. mm.; BODY FLUID WBC 291 /cu. mm.
[2025-03-12 19:41] LABS: BF LYMPHOCYTE 73 %; BF MACROPHAGE 8; BF NEUTROPHIL 19.0 %; BF TOTAL CELLS COUNTED 100
[2025-03-13] VITALS (13 sets, daily range): BP systolic 127–144; BP diastolic 56–73; PULSE 71–81; RESP 16–20; TEMP 98–98.5; O2SAT 94–100
[2025-03-13 05:06] LABS: NUCLEATED RED BLOOD CELLS 0.0 % (0.0-0.19); PLATELET COUNT (AUTO) 223.0 K/uL (130-400); RED BLOOD CELL COUNT(AUTO) 3.21 MIL/uL (4.00-5.50); RED CELL DISTRIBUTION WIDTH 17.7 % (11.0-15.5); WHITE BLOOD COUNT (AUTO) 11.9 K/uL (4.8-10.8)
[2025-03-13 05:21] LABS: ASPARTATE AMINOTRANSFERASE 18.0 U/L (10-37); CREATININE 1.4 mg/dL (0.5-1.0); GLOMERULAR FILTR. RATE CALC 39.0 mL/min (>90); GLUCOSE,RANDOM 104.0 mg/dL (70-105); SODIUM SERUM 142.0 mmol/L (136-145); TOTAL PROTEIN, SERUM 7.0 g/dL (6.0-8.3); UREA NITROGEN, BLOOD 20.0 mg/dL (7-18)
--- NOTE | 2025-03-13 10:45 | PN ---
INFECTIOUS DISEASE PROGRESS NOTE Date of Service: Mar 13, 2025 SUBJECTIVE: Patient was seen and examined at bedside in room 406. Patient is status post bedside right thoracentesis with 750 mL removed yesterday. Patient is home O2 dependent and is currently on oxygen via nasal cannula 2 L/min. No fever, temperature is 98.2. [facility] IV antibiotics with Zosyn x 10 days and pending insurance authorization. PHYSICAL EXAM EYES: Anicteric. Pupils equal and reactive. HENT: No oral thrush seen, moist Oral mucosa. NECK: Supple, no JVD or thyromegaly. LUNGS: Good air entry. No rales, no rhonchi. Oxygen support. CARDIOVASCULAR: S1, S2 regular. No murmur heard. ABDOMEN: Soft, non tender, bowel sounds present, no organomegaly. CENTRAL NERVOUS SYSTEM: Awake, alert, oriented x 3. SKIN: No rashes, no swelling. LYMPHATICS: No peripheral lymphadenopathy. MUSCULOSKELETAL: No joint swelling, erythema or tenderness. EXTREMITIES: No cyanosis or clubbing. BACK: No deformity, no pressure ulcer. GENITOURINARY: No dysuria or hematuria. Vital Sign (Last 12 Hours) 03/12/25 03/12/25 03/13/25 03/13/25 23:14 23:41 03:56 06:50 Temp 98.4 98.2 Pulse 74 83 81 76 Resp 20 16 16 18 B/P (MAP) 143/78 138/59 Pulse Ox 95 97 O2 Delivery Aerosol Face Mask Nasal Cannula N/Cannula Low lpm O2 Flow Rate 2.0 2.0 FiO2 28 03/13/25 03/13/25 06:51 08:14 Temp 98.2 Pulse 76 72 Resp 20 20 B/P (MAP) 127/56 Pulse Ox 98 O2 Delivery Room Air Intake & Output (last 24hrs) 03/12/25 03/12/25 03/13/25 15:00 23:00 07:00 Intake Total 1050 ml 600.0 ml Balance 1050 ml 600.0 ml LABS: Laboratory: Test 03/13/25 05:40 03/13/25 04:35 03/12/25 14:50 03/12/25 03:31 Range/Units Whole Blood Glucose 111 H 70-110 MG/DL White Blood Count 11.9 H 4.8-10.8 K/uL Red Blood Count 3.21 L 4.00-5.50 MIL/uL Hemoglobin 9.0 L 12.0-16.0 g/dL Hematocrit 27.7 L 36-48 % Mean Corpuscular Volume 86.3 79-99 fL Mean Corpuscular Hemoglobin 28.0 27.0-33.0 pg Mean Corpuscular Hemoglobin Concent 32.5 32.0-36.0 g/dL Red Cell Distribution Width 17.7 H 11.0-15.5 % Platelet Count 223 130-400 K/uL Mean Platelet Volume 10.0 7.5-10.5 fL Nucleated Red Blood Cells 0.0 0.0-0.19 % Sodium Level 142 136-145 mmol/L Potassium Level 3.7 3.5-5.1 mmol/L Chloride Level 105 101-111 mmol/L Carbon Dioxide Level 28 21-32 mmol/L Blood Urea Nitrogen 20 H 7-18 mg/dL Creatinine 1.4 H 0.5-1.0 mg/dL Glomerular Filtration Rate Calc 39 >90 mL/min Random Glucose 104 70-105 mg/dL Total Calcium 8.6 8.5-10.1 mg/dL Magnesium Level 1.80 1.80-2.40 mg/dL Total Bilirubin 0.3 0.2-1.0 mg/dL Aspartate Amino Transf (AST/SGOT) 18 10-37 U/L Alanine Aminotransferase (ALT/SGPT) 23 12-78 U/L Alkaline Phosphatase 96 50-136 U/L Total Protein 7.0 6.0-8.3 g/dL Albumin 3.2 L 3.5-5.0 g/dL Body Fluid Source PLEURAL Body Fluid Volume 750 mL Body Fluid Color ORANGE H LT YELLOW Body Fluid Supernatant Appearance CLOUDY H CLEAR Body Fluid WBC 291 /cu. mm. Body Fluid RBC 55791 /cu. mm. Body Fluid Neutrophils 19.0 % Body Fluid Lymphocytes 73 % Body Fluid Macrophages (%) 8 Pleural Fluid pH 7.5 Pleural Fluid Total Protein 3.2 mg/dL Pleural Fluid LDH 101 U/L Pleural Fluid Glucose 152 Prothrombin Time 10.4 9.6-11.6 SEC Prothromb Time International Ratio 0.98 0.85-1.15 Activated Partial Thromboplast Time 32.5 26.3-35.5 SEC Lactate Dehydrogenase 219 81-234 U/L DIAGNOSTICS / RADIOLOGY: PATIENT: ALFONZO MEDINA ACCT: [id number] LOC: [facility] U: [id number] AGE/SX: 74/F ROOM: 406 RE03/08/[address]: ANJELICA SOW MD : 1950 BED: 1 DIS: STATUS: ADM IN TLOC: SPEC: [id number] [place]: 03/08/25 STATUS: COMP REQ: [id number] RECD: 03/09/[address]: CHARLETTE DOCKERY MD SOURCE: URINE CATH ENTR: 03/09/[address] [facility] [address]: HERLINDA DE LA PAZ MD SPDESC: CATHERIZED ORDERED: AERO ID & SENS COMMENTS: CALLED TO: NURSE ALTMAN Procedure Result Jenaro Date-Time AEROBIC ID & SENSITIVITIES Final 03/10/25-0643 MRL EXTENDED SPECTRUM BETA-LACTAMASE ORGANISM IDENTIFIED. CRITICAL RESULT WAS CALLED BY TOMMIE HASTINGS ON 03/10/25 AT 0641. CRITICAL VALUES WERE READ BACK AND ACKNOWLEDGED BY CHARLETTE HAINES ([facility] [place]) COLONY DESCRIPTION: DAY 1: COLONY COUNT: >100,000 CFU/ML GRAM NEGATIVE RODS IDENTIFICATION AND SENSITIVITY TO FOLLOW COMMENTS(R): ESBL KLEBSIELLA PNEUMONIAE K PNEUMO M.I.C. RX --------- ---- AZTREONAM >16 ESBL CEFAZOLIN >16 R* CEFTAZIDIME 16 ESBL CEFTAZIDIME/AVIBACTAM <=8 S CEFTRIAXONE >2 ESBL CIPROFLOXACIN 0.5 I GENTAMICIN <=2 S LEVOFLOXACIN 1 I NITROFURANTOIN 64 I MEROPENEM <=1 S PIPERACILLIN/TAZOBACTAM <=8 S TRIMETHOPRIM/SUFLAMETHOXAZOLE <=2/38 S KLEBSIELLA PNEUMONIAE: NEGATIVE/URINE COMBO 62 Lab Alert - ESBL (Extended-Spectrum Beta-Lactamase livestock producer) ASSESSMENT: Urinary tract infection with Klebsiella pneumoniae. Infection with multidrug resistant organism. Acute hypoxic respiratory failure. Pneumonia. Right pleural effusion, status post bedside thoracentesis with 750 mL removed. Leukocytosis. Acute renal failure. Chronic myeloid leukemia. Diabetes mellitus. PLAN: Continue Zosyn IV. Continue azithromycin. [facility] for outpatient IV antibiotics with Zosyn x 10 days and pending insurance authorization. Continue GI prophylaxis. Continue antidiabetic. Continue oxygen support. This case was reviewed and discussed with my supervising physician and the above assessment and plan was formulated and agreed upon. ATTESTATION BY PHYSICIAN I have seen and examined the patient. I reviewed the documentation, medical de cision making, and treatment plan as noted by the mid-level provider above. I agree with the findings and plan of care. KVNG CARVALHO MD, MIRTA L [employer] SEWER Mar 13, 2025 10:45
--- NOTE | 2025-03-13 12:37 | NUR ---
DC PLAN SPOKE TO MANUEL FAUSTIN FOR BENCHMARK ABOUT O2 PORTABLE CONCENTRATOR. EXPLAINED PATIENT ALREADY HAS 02 AND GETTING SOMETHING LIKE AN INOGEN IT IS DIFFICULT. SAID PATIENT WILL BE OKAY TO DC HOME WITH OUT IT. Addendum: 03/13/25 at 1243 by TEQUILA SOLER RN CM Amended: Links added.
--- NOTE | 2025-03-13 15:46 | PN ---
[facility] PROGRESS NOTE Date Patient Seen: Mar 13, 2025 Time of Visit: 15:46 Supervising Physician: Dr. Clayton Primary Care Physician: Dr.Oziel Abiel Diana MD Inpatient Consults: NA PROBLEM LIST: Acute on chronic hypoxemic respiratory failure, home O2 dependent, baseline 2 L Moderate recurrent right-sided pleural effusion with recent right thoracentesis by IR with 1L removal on 11/16/2024, Transudative, due to oral chemotherapy Bosutinib S/P right thoracentesis by Dr. Pascual on 03/12/2025 with 750ml removed, transudative per Lights criteria Acute cystitis (+) Klebsiella ESBL, pending outpatient IV ABX setup Refractory Bilateral Multifocal pneumonia Immunocompromised host EUGENE on CKD stage IIIB, POA Chronic myelogenous leukemia on oral chemotherapy Bosutinib Pulmonary hypertension, [id number] per echo September 2024 Moderate aortic and mitral stenosis, with preserved LVEF of 65%, echo September 2024 Paroxysmal atrial fibrillation, not on AC given hx of spontaneous subdural hemorrhages Peripheral arterial disease with history of stents on lower extremities and bilateral TMA Anemia of chronic disease Chronic kidney disease stage IIIB Diabetes mellitus type 2 Hypertension Hyperlipidemia Macular degeneration of left eye History of CVA Obesity, BMI 32.5 INTERVAL HISTORY: Patient evaluated at bedside, no complaints at this time and she remains on room air. She continues on Zosyn antibiotics. Patient is responding well to antibiotic treatment at this time, currently pending outpatient antibiotics with [facility] for continued administration of Zosyn for ESBL cystitis. Patient denies any nausea or vomiting, tolerating diet no complaints regarding bowel movements. Denies any chest pain, abdominal pain, nausea or vomiting. Prognosis is guarded. Discharge once IV ABX outpatient has been setup by case management, midline in place. CM to work on possible portable oxygen concentrator per patient request. Patient only has portable tank. REVIEW OF SYSTEMS: 12 point ROS reviewed with patient. Pertinent positives mentioned above. Otherwise negative. PHYSICAL EXAM: GENERAL: Alert, weak, awake oriented x 3 HEENT: EOMI, Sclera non icteric, moist mucosa NECK: Supple, no JVD, trachea midline LUNGS: Diminshed breath sounds bilaterally. No wheezes HEART: Regular rate and rhythm. Normal S1 and S2, without murmurs ABD: Abdomen soft, nontender. Bowel sounds present EXT: No clubbing cyanosis or edema NEURO: AAOX3, follows commands Vital Signs (last 8hr) Date Time Temp Pulse Resp B/P (MAP) Pulse Ox O2 Delivery O2 Flow Rate FiO2 03/13/25 11:37 98.1 72 20 140/69 99 Room Air 03/13/25 11:04 78 20 N/A Room Air 21 03/13/25 08:14 98.2 72 20 127/56 98 Room Air LABS: Hematology Labs: Test 03/13/25 04:35 Range/Units White Blood Count 11.9 H 4.8-10.8 K/uL Red Blood Count 3.21 L 4.00-5.50 MIL/uL Hemoglobin 9.0 L 12.0-16.0 g/dL Hematocrit 27.7 L 36-48 % Mean Corpuscular Volume 86.3 79-99 fL Mean Corpuscular Hemoglobin 28.0 27.0-33.0 pg Mean Corpuscular Hemoglobin Concent 32.5 32.0-36.0 g/dL Red Cell Distribution Width 17.7 H 11.0-15.5 % Platelet Count 223 130-400 K/uL Mean Platelet Volume 10.0 7.5-10.5 fL Nucleated Red Blood Cells 0.0 0.0-0.19 % Chemistry Labs: Test 03/13/25 15:38 03/13/25 04:35 03/12/25 03:31 Range/Units Whole Blood Glucose 156 #H 70-110 MG/DL Sodium Level 142 136-145 mmol/L Potassium Level 3.7 3.5-5.1 mmol/L Chloride Level 105 101-111 mmol/L Carbon Dioxide Level 28 21-32 mmol/L Blood Urea Nitrogen 20 H 7-18 mg/dL Creatinine 1.4 H 0.5-1.0 mg/dL Glomerular Filtration Rate Calc 39 >90 mL/min Random Glucose 104 70-105 mg/dL Total Calcium 8.6 8.5-10.1 mg/dL Magnesium Level 1.80 1.80-2.40 mg/dL Total Bilirubin 0.3 0.2-1.0 mg/dL Aspartate Amino Transf (AST/SGOT) 18 10-37 U/L Alanine Aminotransferase (ALT/SGPT) 23 12-78 U/L Alkaline Phosphatase 96 50-136 U/L Total Protein 7.0 6.0-8.3 g/dL Albumin 3.2 L 3.5-5.0 g/dL Lactate Dehydrogenase 219 81-234 U/L Coagulation Labs: Test 03/12/25 03:31 Range/Units Prothrombin Time 10.4 9.6-11.6 SEC Prothromb Time International Ratio 0.98 0.85-1.15 Activated Partial Thromboplast Time 32.5 26.3-35.5 SEC DIAGNOSTICS / RADIOLOGY RESULTS: [ ] PLAN AM CXR AM labs Changed IV Cefepime to Zosyn due to urine culture positive for ESBL, E.coli Hold Plavix for now NEURO: Minimize central acting medications as possible. Maintain fall precautions, adequate lighting during the day PULMONARY: Supplemental 02 as needed. Maintain aspiration precautions at all times CARDIOVASCULAR: Follow hemodynamics. Vital signs per facility protocol GI & NUTRITION: Continue with nutritional support. Continue stool softeners and laxatives as needed. KIDNEYS & ELECTROLYTES: Strict monitoring of intake, output and overall fluid balance. Avoid nephrotoxic medications to the extent possible. Medications to be dosed according to renal function. Monitor electrolytes and replace as needed ENDOCRINE: Maintain blood glucose between 100-180 at all times. Hypoglycemia protocol in place INFECTIOUS DISEASE: Trend temperature, WBC and procalcitonin level Follow cultures, deescalate antibiotics as soon as possible. Panculture if new onset fever ONCOLOGY/HEMATOLOGY/COAGULATION: Monitor for s/s of bleeding Monitor hemoglobin, coagulation studies as needed SKIN: Pressure ulcer prevention per facility protocol Specialty mattress ORTHO/REHAB: Continue PT/OT Prophylaxis: Continue GI and DVT prophylaxis Code Status: Full Resuscitation Disposition: TBD Total critical time: 35 minutes, excluding procedures Other: Patient was seen and case discussed with jer DUFFY. Plan of care was discussed and agreed upon. ALESHA WOODALL Mar 13, 2025 15:46
[2025-03-14] VITALS (7 sets, daily range): BP systolic 147–155; BP diastolic 66–75; PULSE 61–85; RESP 16–20; TEMP 98–98.4; O2SAT 98–100
--- NOTE | 2025-03-14 03:27 | HMCIMG ---
EXAM: CR Chest, 1 view CLINICAL HISTORY: Pleural effusion. COMPARISON: Chest radiograph dated 03/12/2025. FINDINGS: Small pleural effusions with mid to lower zone airspace disease bilaterally, more pronounced on the right. Mild cardiomegaly, pulmonary vascular congestion, and mild diffuse interstitial edema. No pneumothorax. Partially visualized PICC line tip around the right axillary region. No acute osseous abnormality. IMPRESSION: Small pleural effusions with mid to lower zone airspace disease bilaterally, more pronounced on the right. Mild cardiomegaly, pulmonary vascular congestion, and mild diffuse interstitial edema. No gross interval changes. /[place]
[2025-03-14 04:10] LABS: NUCLEATED RED BLOOD CELLS 0.0 % (0.0-0.19); PLATELET COUNT (AUTO) 286.0 K/uL (130-400); RED BLOOD CELL COUNT(AUTO) 3.49 MIL/uL (4.00-5.50); RED CELL DISTRIBUTION WIDTH 17.8 % (11.0-15.5); WHITE BLOOD COUNT (AUTO) 12.5 K/uL (4.8-10.8)
[2025-03-14 04:17] LABS: CREATININE 1.3 mg/dL (0.5-1.0); GLOMERULAR FILTR. RATE CALC 43.0 mL/min (>90); GLUCOSE,RANDOM 113.0 mg/dL (70-105); SODIUM SERUM 140.0 mmol/L (136-145); UREA NITROGEN, BLOOD 20.0 mg/dL (7-18)
--- NOTE | 2025-03-14 12:56 | NUR ---
EXPLAIN [id number] ORDER FOR TODAY. DAUGHTER WANTING TO SPEAK WITH CASE MANAGEMENT ABOUT O2 CONCENTRATOR STILL. CONTACTED CM; WILL COME TO TALK TO PATIENT.
--- NOTE | 2025-03-14 13:53 | NUR ---
SC PLAN 02 CONCENTRATOR CONFUSION OVER CONCENTRATOR. CM HAD SPOKEN TO ALESHA AND PATIENT ABOUT CONCENTRATOR AND SAID DID NOT NEED TO WAIT FOR CONCENTRATOR TO GO HOME. DAUGHTER HAD NOT BEEN IN ROOM DURING THIS CONVERSATION SAID SHE HAD BEEN IN BATHROOM BUT CM DID NOT SEE HER OR WOULD HAVE REPEATED CONVERSATION WITH HER. TODAY CM DID SPEAK TO DAUGHTER CALLED [facility] PATIENT IN PATIENT ROOM WITH DAUGHTER IN ROOM TO HEAR RESPONSE. PATIENT DOES NOT QUALIFY FOR PORTABLE 02 CONCENTRATOR. RECOMMENDED FOR DAUGHTER TO FOLLOW UP WITH INSURANCE AND TO SEE IF THERE IS ANYTHING THAT THEY CAN DO TO APPROVE IT FROM INSURANCE END. DAUGHTER SAID WOULD FOLLOW UP WITH INSURANCE ONCE HOME AND HAD TIME TO TALK TO THEM. CM LET NURSE KNOW OF CONVERSATION. Addendum: 03/14/25 at 1506 by TEQUILA SOLER RN CM Amended: Links added.
--- NOTE | 2025-03-14 14:56 | NUR ---
PATIENT DISCHARGED. DAUGHTER AWARE OF APPOINTMENT TOMORROW WITH [facility] FOR CONTINUED ANTIBIOTIC. PER DAUGHTER ALREADY GIVEN INFO. IV REMOVED INTACT. ALL BELONGING GATHERED BY PATIENT AND DAUGHTER. ALL QUESTIONS AND CONCERNS ANSWERED.
--- NOTE | 2025-03-14 15:13 | NUR ---
DC PLAN VISITED WITH PATIENT. GAVE INFORMATION FOR [facility] INCLUDED MAP, ADDRESS, PHONE, TIME AND DATE. Addendum: 03/14/25 at 1516 by TEQUILA SOLER RN CM Amended: Links added.
--- NOTE | 2025-03-14 19:50 | PN ---
INFECTIOUS DISEASE PROGRESS NOTE Date of Service: Mar 14, 2025 SUBJECTIVE: Patient was seen and examined at bedside in room 406. Patient is status post bedside right thoracentesis with 750 mL removed on 03/12/2026. No respiratory distress observe, patient however continues on oxygen report via nasal cannula at 2 L/min. Remains afebrile, temperature is 98.4. Patient has been approved to [facility] for outpatient IV antibiotics with Zosyn x 10 days and being discharged today. PHYSICAL EXAM EYES: Anicteric. Pupils equal and reactive. HENT: No oral thrush seen, moist Oral mucosa. NECK: Supple, no JVD or thyromegaly. LUNGS: Good air entry. No rales, no rhonchi. Oxygen support. CARDIOVASCULAR: S1, S2 regular. No murmur heard. ABDOMEN: Soft, non tender, bowel sounds present, no organomegaly. CENTRAL NERVOUS SYSTEM: Awake, alert, oriented x 3. SKIN: No rashes, no swelling. LYMPHATICS: No peripheral lymphadenopathy. MUSCULOSKELETAL: No joint swelling, erythema or tenderness. EXTREMITIES: No cyanosis or clubbing. BACK: No deformity, no pressure ulcer. GENITOURINARY: No dysuria or hematuria. Vital Sign (Last 12 Hours) 03/14/25 03/14/25 03/14/25 08:44 11:01 11:24 Temp 98.4 Pulse 76 74 Resp 18 18 B/P (MAP) 153/75 Pulse Ox 98 96 O2 Delivery Nasal Cannula* Room Air O2 Flow Rate 2 FiO2 28 Intake & Output (last 24hrs) 03/13/25 03/13/25 03/14/25 15:00 23:00 07:00 Intake Total 1100 ml 1100.0 ml Balance 1100 ml 1100.0 ml LABS: Laboratory: Test 03/14/25 10:53 03/14/25 03:34 03/13/25 04:35 Range/Units Whole Blood Glucose 99 70-110 MG/DL White Blood Count 12.5 H 4.8-10.8 K/uL Red Blood Count 3.49 L 4.00-5.50 MIL/uL Hemoglobin 9.9 L 12.0-16.0 g/dL Hematocrit 30.7 L 36-48 % Mean Corpuscular Volume 88.0 79-99 fL Mean Corpuscular Hemoglobin 28.4 27.0-33.0 pg Mean Corpuscular Hemoglobin Concent 32.2 32.0-36.0 g/dL Red Cell Distribution Width 17.8 H 11.0-15.5 % Platelet Count 286 # 130-400 K/uL Mean Platelet Volume 10.9 H 7.5-10.5 fL Nucleated Red Blood Cells 0.0 0.0-0.19 % Sodium Level 140 136-145 mmol/L Potassium Level 4.0 3.5-5.1 mmol/L Chloride Level 104 101-111 mmol/L Carbon Dioxide Level 24 21-32 mmol/L Blood Urea Nitrogen 20 H 7-18 mg/dL Creatinine 1.3 H 0.5-1.0 mg/dL Glomerular Filtration Rate Calc 43 >90 mL/min Random Glucose 113 H 70-105 mg/dL Total Calcium 9.1 8.5-10.1 mg/dL Magnesium Level 1.80 1.80-2.40 mg/dL Total Bilirubin 0.3 0.2-1.0 mg/dL Aspartate Amino Transf (AST/SGOT) 18 10-37 U/L Alanine Aminotransferase (ALT/SGPT) 23 12-78 U/L Alkaline Phosphatase 96 50-136 U/L Total Protein 7.0 6.0-8.3 g/dL Albumin 3.2 L 3.5-5.0 g/dL ASSESSMENT: Urinary tract infection with Klebsiella pneumoniae. Infection with multidrug resistant organism. Acute hypoxic respiratory failure. Pneumonia. Right pleural effusion, status post bedside thoracentesis with 750 mL removed. Leukocytosis. Acute renal failure. Chronic myeloid leukemia. Diabetes mellitus. PLAN: Patient has been approved to [facility] for outpatient IV antibiotics with Zosyn x 10 days and being discharged today. Continue oxygen support. This case was reviewed and discussed with my supervising physician and the above assessment and plan was formulated and agreed upon. ATTESTATION BY PHYSICIAN I have seen and examined the patient. I reviewed the documentation, medical decision making, and treatment plan as noted by the mid-level provider above. I agree with the findings and plan of care. KVNG CARVALHO MD, [facility] Mar 14, 2025 19:50
--- NOTE | 2025-03-14 22:03 | DS ---
[facility] DISCHARGE SUMMARY Date Patient Seen: Mar 14, 2025 Time of Visit: 22:03 Supervising Physician: Dr. Clayton Primary Care Physician: Dr.Oziel Abiel Diana MD Inpatient Consults: NA HOSPITAL COURSE: HPI (per admitting provider) This is a 74-year-old female patient who has a past medical history that is significant for Diabetes-Type II, High Cholesterol, Hypertension , pleural effusion and leukemia currently on Bosutinib. The patient presented to the emergency department today with complaint of generalized weakness x3 days and family's concern with regards to weak gait and poor feeding. Upon workup in the emergency department, the initial vital signs showed no febrile events blood pressure was slightly elevated and the patient was placed on a nasal cannula for oxygen supplementation. Laboratory data was notable for WBC of 13.8, H and H and platelet count were stable. Chemistry panel showed elevated renal para meters with a BUN of 35, creatinine of 2.0 and a BNP of 159. Troponin was slightly elevated at 63. Urinalysis showed yellow clear appearance with positive nitrates, small leukocyte esterase and moderate bacteria. Imaging of the chest showed bilateral pulmonary infiltrates and vascular congestion. The patient was started on antibiotic therapy with IV Rocephin and was later admit martha for further inpatient evaluation and management of her condition. At the time of my visit, the patient remained in the emergency department awaiting bed assignment. No other complaint. The patient was treated for the following problems: Patient was evaluated on this admission for pleural effusion status post thoracentesis secondary to the patient's chemotherapy. Patient was found on this admission to have ESBL E coli cystitis infection for which she was started on Zosyn antibiotics. Patient has outpatient IV antibiotics arranged with [facility] in his her to complete her antibiotic therapy. Advised to follow up with PCP upon discharge. ACTIVE PROBLEM LIST FOR THE HOSPITALIZATION: Acute on chronic hypoxemic respiratory failure, home O2 dependent, baseline 2 L Moderate recurrent right-sided pleural effusion with recent right thoracentesis by IR with 1L removal on 11/16/2024, Transudative, due to oral chemotherapy Bosutinib S/P right thoracentesis by Dr. Pascual on 03/12/2025 with 750ml removed, transudative per Lights criteria Acute cystitis (+) Klebsiella ESBL, pending outpatient IV ABX setup Refractory Bilateral Multifocal pneumonia Immunocompromised host EUGENE on CKD stage IIIB, POA Chronic myelogenous leukemia on oral chemotherapy Bosutinib CHRONIC PROBLEMS: continue previous management per PCP unless otherwise indicated Pulmonary hypertension, [id number] per echo September 2024 Moderate aortic and mitral stenosis, with preserved LVEF of 65%, echo September 2024 Paroxysmal atrial fibrillation, not on AC given hx of spontaneous subdural hemorrhages Peripheral arterial disease with history of stents on lower extremities and bilateral TMA Anemia of chronic disease Chronic kidney disease stage IIIB Diabetes mellitus type 2 Hypertension Hyperlipidemia Macular degeneration of left eye History of CVA Obesity, BMI 32.5 AMBULATORY CARE NURSE FINDINGS/RECOMMENDATIONS: [ ] PROCEDURES: as mentioned above DISCHARGE MEDICATIONS: Pt hemodynamically stable and afebrile at time of discharge. PCP notified of patients admission, hospital course and discharge. PHYSICAL EXAM: GENERAL: Alert, weak, awake oriented x 3 HEENT: EOMI, Sclera non icteric, moist mucosa NECK: Supple, no JVD, trachea midline LUNGS: Diminshed breath sounds bilaterally. No wheezes HEART: Regular rate and rhythm. Normal S1 and S2, without murmurs ABD: Abdomen soft, nontender. Bowel sounds present EXT: No clubbing cyanosis or edema NEURO: AAOX3, follows commands FOLLOW-UP: Follow-up with PCP in 2-3 days RECOMMENDATIONS: See Discharge Instructions This case was seen and discussed with my supervising physician. More than 30 minutes spent on discharge process, including evaluation of the patient, discussion with nursing staff, medication reconciliation and follow-up appointments ALESHA WOODALL Mar 14, 2025 22:03
== END 2025-03-14 15:30 | disposition home or self-care (01) | DRG 871 ==
LOC: EDH 09:02 → EDHIP 17:00 → 4BH 03-09 00:31
PROVIDERS: ADMIT Internal Medicine; ATTEND Internal Medicine
PROC: 0W993ZX Drainage of Right Pleural Cavity, Percutaneous Approach, Diagnostic (ICD-10-PCS; principal; 2025-03-12)
PROC: 05H733Z Insertion of Infusion Device into Right Axillary Vein, Percutaneous Approach (ICD-10-PCS; 2025-03-12)
DX: A41.9 Sepsis, unspecified organism (principal); J18.9 Pneumonia, unspecified organism; J96.21 Acute and chronic respiratory failure with hypoxia; N17.9 Acute kidney failure, unspecified; D84.9 Immunodeficiency, unspecified; N30.00 Acute cystitis without hematuria; Z16.24 Resistance to multiple antibiotics; N18.32 Chronic kidney disease, stage 3b; E11.22 Type 2 diabetes mellitus with diabetic chronic kidney disease; I12.9 Hypertensive chronic kidney disease with stage 1 through stage 4 chronic kidney disease, or unspecified chronic kidney disease; B96.1 Klebsiella pneumoniae [K. pneumoniae] as the cause of diseases classified elsewhere; D63.8 Anemia in other chronic diseases classified elsewhere; E11.51 Type 2 diabetes mellitus with diabetic peripheral angiopathy without gangrene; E66.9 Obesity, unspecified; E78.00 Pure hypercholesterolemia, unspecified; I27.20 Pulmonary hypertension, unspecified; I35.0 Nonrheumatic aortic (valve) stenosis; I48.0 Paroxysmal atrial fibrillation; Z83.3 Family history of diabetes mellitus; Z86.73 Personal history of transient ischemic attack (TIA), and cerebral infarction without residual deficits; Z68.33 Body mass index [BMI] 33.0-33.9, adult; Z99.81 Dependence on supplemental oxygen; Z79.899 Other long term (current) drug therapy
CPT/HCPCS: 36415; 36556; 71045; 71046; 71250; 80048; 80053; 81001; 82550; 82945; 82948; 83605; 83615; 83735; 83880; 83986; 84145; 84155; 84157; 84484; 85025; 85027; 85576; 85610; 85730; 87071; 87086; 87116; 87186; 87205; 87206; 88108; 88305; 89051; 93005; 94640; 94664; 94667; 94668; 96365; 99285; C1894; G0378; J0456; J0692; J0696; J1938; J2270; J2405; J2543; J3475; A4600; C1750